=== PATIENT | female | born 1935 | race Caucasian/White ===

== ENCOUNTER 2019-11-26 07:42 | Outpatient (CLI) | payer MEDICARE, SELFPAY ==
[2019-11-26 08:09] LABS: Basophils Absolute Auto 0.02 K/mm3 (0.00-0.10); Basophils Percent Auto 0.3 % (0.0-1.0); Eosinophils Absolute Auto 0.16 K/mm3 (0.02-0.50); Eosinophils Percent Auto 2.6 % (1.0-6.0); Hematocrit 43.4 % (35.0-42.0); Hemoglobin 14.1 g/dL (11.7-13.8); Immature Granulocyte Absolute 0.03 K/mm3 (0.00-0.00); Immature Granulocyte Percent A 0.5 % (0.0-0.0); Lymphocytes Absolute Auto 1.43 K/mm3 (1.10-4.50); Lymphocytes Percent Auto 22.8 % (18.0-42.0); Mean Corpuscular HGB Conc 32.5 g/dL (32.0-36.0); Mean Corpuscular Hemoglobin 28.7 pg (27.0-31.0); Mean Corpuscular Volume 88.2 fL (78.0-102.0); Mean Platelet Volume 9.8 fl (9.2-11.8); Monocytes Absolute Auto 0.35 K/mm3 (0.10-0.90); Monocytes Percent Auto 5.6 % (2.0-11.0); Neutrophils Absolute Auto 4.3 K/mm3 (1.7-7.2); Neutrophils Percent Auto 68.2 % (50.0-70.0); Platelet Count Result 216 K/mm3 (150-420); Red Blood Count 4.92 M/mm3 (4.20-5.40); Red Cell Distribution Width 13.7 % (11.6-14.4); White Blood Count 6.3 K/mm3 (4.8-10.8)
[2019-11-26 08:49] LABS: Hemoglobin A1C 6.2 % (<5.7)
[2019-11-26 10:03] LABS: Alanine Aminotransferase 32 U/L (14-59); Albumin Level 3.9 g/dL (3.4-5.0); Alkaline Phosphatase 94 U/L (46-116); Anion Gap 12.5 mmol/L (7-16); Aspartate Amino Transferase 23 U/L (15-37); Bilirubin,Total 0.9 mg/dL (0.00-1.00); Blood Urea Nitrogen 13 mg/dL (7-18); Calcium 9.7 mg/dL (8.5-10.1); Carbon Dioxide 29 mmol/L (21-32); Chloride 102 mmol/L (98-108); Cholesterol 203 mg/dL (0-200); Estimated Glomerular Filt Rate 60; Glucose 117 mg/dL (70-99); HDL Direct 59 mg/dL (40-60); LDL Cholesterol Calculated 116 mg/dL (<130); Osmolality Calculated 289 mOsm/kg (285-295); Potassium 4.5 mmol/L (3.5-5.1); Sodium 139 mmol/L (136-145); Total Protein 7.4 g/dL (6.4-8.2); Triglycerides 141 mg/dL (0-150)
== END 2019-11-26 07:43 | disposition home or self-care (01) ==
PROVIDERS: PCP Nurse Practitioner Family; Visit Provider Nurse Practitioner Family
DX: E78.5 Hyperlipidemia, unspecified (principal); E11.69 Type 2 diabetes mellitus with other specified complication; E11.59 Type 2 diabetes mellitus with other circulatory complications; I10 Essential (primary) hypertension
CPT/HCPCS: 36415; 80053; 80061; 83036; 85025

== ENCOUNTER 2020-05-25 08:25 | Outpatient (CLI) | payer MEDICARE, SELFPAY ==
[2020-05-25 08:45] LABS: Hemoglobin A1C 5.4 % (<5.7)
== END 2020-05-25 08:26 | disposition home or self-care (01) ==
LOC: CHSLAB 08:27
PROVIDERS: PCP Nurse Practitioner Family; Visit Provider Nurse Practitioner Family
DX: E11.9 Type 2 diabetes mellitus without complications (principal)
CPT/HCPCS: 36415; 83036

== ENCOUNTER 2020-11-27 08:00 | Outpatient (CLI) | payer MEDICARE, SELFPAY ==
[2020-11-27 08:12] LABS: Basophils Absolute Auto 0.03 K/mm3 (0.00-0.10); Basophils Percent Auto 0.4 % (0.0-1.0); Eosinophils Absolute Auto 0.16 K/mm3 (0.02-0.50); Eosinophils Percent Auto 2.1 % (1.0-6.0); Hematocrit 44.1 % (35.0-42.0); Hemoglobin 13.8 g/dL (11.7-13.8); Immature Granulocyte Absolute 0.03 K/mm3 (0.00-0.00); Immature Granulocyte Percent A 0.4 % (0.0-0.0); Lymphocytes Absolute Auto 1.46 K/mm3 (1.10-4.50); Lymphocytes Percent Auto 19.1 % (18.0-42.0); Mean Corpuscular HGB Conc 31.3 g/dL (32.0-36.0); Mean Corpuscular Volume 89.5 fL (78.0-102.0); Mean Platelet Volume 9.4 fl (9.2-11.8); Monocytes Absolute Auto 0.48 K/mm3 (0.10-0.90); Monocytes Percent Auto 6.3 % (2.0-11.0); Neutrophils Absolute Auto 5.5 K/mm3 (1.7-7.2); Neutrophils Percent Auto 71.7 % (50.0-70.0); Platelet Count Result 223 K/mm3 (150-420); Red Blood Count 4.93 M/mm3 (4.20-5.40); Red Cell Distribution Width 14.3 % (11.6-14.4); White Blood Count 7.7 K/mm3 (4.8-10.8)
[2020-11-27 08:27] LABS: Hemoglobin A1C 5.8 % (<5.7)
[2020-11-27 08:55] LABS: Alanine Aminotransferase 28 U/L (14-59); Alkaline Phosphatase 92 U/L (46-116); Anion Gap 11 mmol/L (8-16); Aspartate Amino Transferase 16 U/L (15-37); Bilirubin,Total 0.7 mg/dL (0.00-1.00); Blood Urea Nitrogen 15 mg/dL (7-18); Calcium 9.6 mg/dL (8.5-10.1); Carbon Dioxide 27 mmol/L (21-32); Chloride 104 mmol/L (98-108); Cholesterol 171 mg/dL (0-200); Estimated Glomerular Filt Rate > 60; Glucose 130 mg/dL (70-99); HDL Direct 60 mg/dL (40-60); LDL Cholesterol Calculated 92 mg/dL (<130); Osmolality Calculated 296 mOsm/kg (285-295); Potassium 4.3 mmol/L (3.5-5.1); Sodium 142 mmol/L (136-145); Total Protein 7.4 g/dL (6.4-8.2); Triglycerides 96 mg/dL (0-150)
== END 2020-11-27 08:01 | disposition home or self-care (01) ==
PROVIDERS: PCP Nurse Practitioner Family; Visit Provider Nurse Practitioner Family
DX: E11.59 Type 2 diabetes mellitus with other circulatory complications (principal); I10 Essential (primary) hypertension; E11.69 Type 2 diabetes mellitus with other specified complication; E78.5 Hyperlipidemia, unspecified
CPT/HCPCS: 36415; 80053; 80061; 83036; 85025

== ENCOUNTER 2022-05-31 10:17 | Outpatient (CLI) | payer MEDICARE, SELFPAY ==
[2022-05-31 10:44] LABS: Basophils Absolute Auto 0.02 K/mm3 (0.00-0.10); Basophils Percent Auto 0.2 % (0.0-1.0); Eosinophils Percent Auto 1.2 % (1.0-6.0); Hematocrit 41.5 % (35.0-42.0); Hemoglobin 13.6 g/dL (11.7-13.8); Immature Granulocyte Absolute 0.03 K/mm3 (0.00-0.00); Immature Granulocyte Percent A 0.4 % (0.0-0.0); Lymphocytes Absolute Auto 1.07 K/mm3 (1.10-4.50); Lymphocytes Percent Auto 12.7 % (18.0-42.0); Mean Corpuscular HGB Conc 32.8 g/dL (32.0-36.0); Mean Corpuscular Hemoglobin 28.8 pg (27.0-31.0); Mean Corpuscular Volume 87.9 fL (78.0-102.0); Mean Platelet Volume 9.8 fl (9.2-11.8); Monocytes Absolute Auto 0.48 K/mm3 (0.10-0.90); Monocytes Percent Auto 5.7 % (2.0-11.0); Neutrophils Absolute Auto 6.8 K/mm3 (1.7-7.2); Neutrophils Percent Auto 79.8 % (50.0-70.0); Platelet Count Result 235 K/mm3 (150-420); Red Blood Count 4.72 M/mm3 (4.20-5.40); White Blood Count 8.5 K/mm3 (4.8-10.8)
[2022-05-31 10:53] LABS: Hemoglobin A1C 5.8 % (<5.7)
[2022-05-31 11:12] LABS: Alanine Aminotransferase 21 U/L (14-59); Albumin Level 4.1 g/dL (3.4-5.0); Alkaline Phosphatase 89 U/L (46-116); Anion Gap 9 mmol/L (8-16); Aspartate Amino Transferase 17 U/L (15-37); Bilirubin,Total 1.2 mg/dL (0.00-1.00); Blood Urea Nitrogen 15 mg/dL (7-18); Calcium 9.4 mg/dL (8.5-10.1); Carbon Dioxide 30 mmol/L (21-32); Chloride 103 mmol/L (98-108); Cholesterol 163 mg/dL (0-200); Estimated Glomerular Filt Rate > 60; Glucose 124 mg/dL (70-99); HDL Direct 66 mg/dL (40-60); LDL Cholesterol Calculated 82 mg/dL (<130); Osmolality Calculated 295 mOsm/kg (285-295); Sodium 142 mmol/L (136-145); Total Protein 7.6 g/dL (6.4-8.2); Triglycerides 76 mg/dL (0-150)
== END 2022-05-31 10:18 | disposition home or self-care (01) ==
LOC: CHSLAB 10:20
PROVIDERS: PCP Nurse Practitioner Family; Visit Provider Nurse Practitioner Family
DX: E78.5 Hyperlipidemia, unspecified (principal); E11.69 Type 2 diabetes mellitus with other specified complication; I10 Essential (primary) hypertension; E11.59 Type 2 diabetes mellitus with other circulatory complications
CPT/HCPCS: 36415; 80053; 80061; 83036; 85025

== ENCOUNTER 2023-02-08 11:05 | Outpatient (CLI) | payer MEDICARE, SELFPAY ==
--- NOTE | 2023-02-08 11:12 | ECG_ITS ---
Measurements Intervals [place] Rate: 41 P: [place]: 0 QRS: 67 QRSD: 86 T: 58 QT: 434 QTc: 361 Interpretive Statements SINUS BRADYCARDIA OCCASIONAL ECTOPIC PREMATURE COMPLEXES NONSPECIFIC ST & T-WAVE ABNORMALITY ABNORMAL ECG NO PREVIOUS ECG AVAILABLE FOR COMPARISON Electronically Signed On 02-08-2023 15:49:18 CDT by Alcon Ortiz M.D.
[2023-02-08 12:36] LABS: Basophils Absolute Auto 0.02 K/mm3 (0.00-0.10); Basophils Percent Auto 0.3 % (0.0-1.0); Eosinophils Absolute Auto 0.16 K/mm3 (0.02-0.50); Eosinophils Percent Auto 2.1 % (1.0-6.0); Hematocrit 45.3 % (35.0-42.0); Hemoglobin 14.6 g/dL (11.7-13.8); Immature Granulocyte Absolute 0.02 K/mm3 (0.00-0.00); Immature Granulocyte Percent A 0.3 % (0.0-0.0); Lymphocytes Absolute Auto 1.36 K/mm3 (1.10-4.50); Lymphocytes Percent Auto 17.6 % (18.0-42.0); Mean Corpuscular HGB Conc 32.2 g/dL (32.0-36.0); Mean Corpuscular Hemoglobin 28.2 pg (27.0-31.0); Mean Corpuscular Volume 87.5 fL (78.0-102.0); Mean Platelet Volume 9.7 fl (9.2-11.8); Monocytes Absolute Auto 0.47 K/mm3 (0.10-0.90); Monocytes Percent Auto 6.1 % (2.0-11.0); Neutrophils Absolute Auto 5.7 K/mm3 (1.7-7.2); Neutrophils Percent Auto 73.6 % (50.0-70.0); Platelet Count Result 261 K/mm3 (150-420); Red Blood Count 5.18 M/mm3 (4.20-5.40); Red Cell Distribution Width 14.1 % (11.6-14.4); White Blood Count 7.7 K/mm3 (4.8-10.8)
[2023-02-08 12:38] LABS: Appearance Urine Clear (Clear); Bilirubin Urine Negative (Negative); Blood Urine 1+ (Negative); Color Urine Yellow (Yellow); Glucose Urine UA Negative (Negative); Ketones Urine Negative (Negative); Leukocyte Esterase Ur 1+ LEU/UL (Negative); Nitrate Urine Negative (Negative); Protein Urine Negative (Negative); Specific Grav Ur 1.025 (1.010-1.020); Urobilinogen Urine 0.2 mg/dL (0.2-1.0)
[2023-02-08 12:45] LABS: Add Urine Microscopic? YES; Bacteria Urine Trace /hpf; RBC Urine 0-2 /hpf (0-2); Squamous Epithelial Cell Urine Few /hpf (Few); WBC Urine 0-5 /hpf (0-3)
[2023-02-08 12:59] LABS: Alanine Aminotransferase 25 U/L (14-59); Albumin Level 4.2 g/dL (3.4-5.0); Alkaline Phosphatase 92 U/L (46-116); Anion Gap 9 mmol/L (8-16); Aspartate Amino Transferase 15 U/L (15-37); Bilirubin,Total 1.3 mg/dL (0.00-1.00); Blood Urea Nitrogen 21 mg/dL (7-18); Calcium 10.1 mg/dL (8.5-10.1); Carbon Dioxide 26 mmol/L (21-32); Chloride 100 mmol/L (98-108); Estimated Glomerular Filt Rate 50; Glucose 127 mg/dL (70-99); NT Pro B Type Natriuretic Pept 491 pg/mL (0-450); Osmolality Calculated 285 mOsm/kg (285-295); Potassium 4.3 mmol/L (3.5-5.1); Sodium 135 mmol/L (136-145); Total Protein 8.2 g/dL (6.4-8.2); Troponin I 8.9 ng/L (0.00-60.4)
[2023-02-08 13:18] LABS: Thyroid Stimulating Hormone Reflex 1.85 u/IU/mL (0.36-3.74)
== END 2023-02-08 11:06 | disposition home or self-care (01) ==
PROVIDERS: PCP Nurse Practitioner Family; Visit Provider Nurse Practitioner Family
DX: M54.9 Dorsalgia, unspecified (principal); R82.90 Unspecified abnormal findings in urine; R00.1 Bradycardia, unspecified; R94.31 Abnormal electrocardiogram [ECG] [EKG]; R06.09 Other forms of dyspnea
CPT/HCPCS: 36415; 80053; 81001; 83880; 84443; 84484; 85025; 87086; 93005

== ENCOUNTER 2023-02-10 08:48 | Outpatient (CLI) | payer MEDICARE, SELFPAY ==
--- NOTE | 2023-02-13 10:29 | WPDHOLTEREM ---
Holter/Event Monitor Holter/Event Monitor Date of procedure: 02/10/23 Holter/Event Procedure: 48 Hr Holter Monitor Indications: Arrhythmia Conclusion: 1. 48 hour holter monitor on 02/10/23. 2. Predominant rhythm is sinus rhythm. HR range 33-112 bpm; average HR 68 bpm. HR at 33 bpm was sinus bradycardia at 06:44. 3. There are 1,347 premature supraventricular complexes, 183 supraventricular couplets, 2 supraventricular triplets, 104 supraventricular bigeminy and 103 supraventricular trigeminy. No supraventricular tachycardia. 4. There are 84 premature ventricular complexes, 3 ventricular couplets. There are 2 episodes of ventricular tachycardia, fastest at 119 bpm and longest lasting 13 beats. 5. No sinoatrial or atrioventricular blocks. The longest pause is 2.2 seconds at 04:05. 6. No symptoms available for correlation.
== END 2023-02-10 08:49 | disposition home or self-care (01) ==
LOC: CHSCARD 08:49
PROVIDERS: PCP Nurse Practitioner Family; Visit Provider Nurse Practitioner Family
DX: I49.9 Cardiac arrhythmia, unspecified (principal)
CPT/HCPCS: 93225; 93226

== ENCOUNTER 2023-03-20 07:43 | Outpatient (CLI) | payer MEDICARE, SELFPAY ==
--- NOTE | 2023-03-20 07:50 | EST_ITS ---
Patient Info Name: Yasmeen Welch Age: 87 years : 1935 Gender: Female Ht: 59 in Wt: 154 lbs BSA: 1.73 m2 HR: 96 bpm BP: 159 / 79 mmHg Heart Rhythm: Sinus Rhythm Technical Quality: Good Exam Date: 03/20/2023 9:11 AM Exam Location: Echo Lab Patient Status: Outpatient Admit Date: 03/20/2023 Staff Ordering Physician: Frederic Nj DO Attending Provider: Frederic Nj DO Exam Type: CA stress gisela w NM Study Info A regadenoson stress test was performed. History/Risk Factors Hypertension: Yes Dyslipidemia: Yes Diabetes Mellitus: Type II Tobacco Use: Former Summary 1. 1. Abnormal lexiscan stress test for ischemic ST changes by ECG criteria. 2. 2. Baseline hypertension. 3. 3. Nuclear scan to follow and will be reported separately. Please correlate with it. Protocol: LEXISCAN Stress ECG Details Stage: REST Duration (min): 3 min : 49 sec HR (bpm): 68 SBP (mmHg): 159 DBP (mmHg): 79 Stage: REST Duration (min): 8 min : 46 sec HR (bpm): 63 SBP (mmHg): 159 DBP (mmHg): 79 Stage: STAGE 1 Duration (min): 0 min : 15 sec HR (bpm): 67 SBP (mmHg): 159 DBP (mmHg): 79 Stage: RECOVERY Duration (min): 0 min : 44 sec HR (bpm): 79 SBP (mmHg): 159 DBP (mmHg): 79 Stage: RECOVERY Duration (min): 1 min : 44 sec HR (bpm): 79 SBP (mmHg): 159 DBP (mmHg): 79 Stage: RECOVERY Duration (min): 2 min : 44 sec HR (bpm): 81 SBP (mmHg): 141 DBP (mmHg): 68 Stage: RECOVERY Duration (min): 3 min : 44 sec HR (bpm): 74 SBP (mmHg): 148 DBP (mmHg): 66 Stage: RECOVERY Duration (min): 4 min : 44 sec HR (bpm): 73 SBP (mmHg): 148 DBP (mmHg): 66 Stage: RECOVERY Duration (min): 5 min : 44 sec HR (bpm): 74 SBP (mmHg): 153 DBP (mmHg): 67 Stage: RECOVERY Duration (min): 6 min : 4 sec HR (bpm): 71 SBP (mmHg): 153 DBP (mmHg): 70 Rest HR: 63 bpm Peak HR: 88 bpm Rest Sys BP: 159 mmHg Peak Sys BP: 153 mmHg Max Pred HR: 134 bpm % Max Pred HR: 66 % Target HR: 114 bpm Max RPP: 13,464 bpm*mmHg BP Response: Normal blood pressure response Termination Reason: Completed Protocol Cardiac Symptoms: None Total Time: 0 min : 15 sec Rest Bailey BP: 79 mmHg Peak Bailey BP: 70 mmHg Total Dose: 0.4 mg Resting ECG Sinus rhythm with 1st degree AV block and non-specific ST and T wave abnormality. Stress ECG 1-[address] depression in inferior leads. Arrhythmias No arrhythmias were observed during the examination. Report Signatures
--- NOTE | 2023-03-20 13:54 | ECHO_ITS ---
Patient Info Name: Yasmeen Welch Age: 87 years : 1935 Gender: Female Ht: 59 in Wt: 154 lbs BSA: 1.73 m2 HR: 65 bpm BP: 155 / 105 mmHg Heart Rhythm: Sinus Rhythm Technical Quality: Good Exam Date: 03/20/2023 2:50 PM Exam Location: Echo Lab Patient Status: Outpatient Admit Date: 03/20/2023 Staff Ordering Physician: Frederic Nj DO Technical Sales Support Specialist: Constantin Ortega RDCS Attending Provider: Frederic Nj DO Referring Physician: Clem ALVAREZ; Exam Type: CA echo doppler color flow Study Info Indications - dyspnea, ventricular tacchycardia Complete two-dimensional, color flow and Doppler transthoracic echocardiogram is performed. History/Risk Factors Hypertension: Yes Dyslipidemia: Yes Diabetes Mellitus: Type II Tobacco Use: Former Summary 1. Complete two-dimensional, color flow and Doppler transthoracic echocardiogram is performed. 2. Left ventricular chamber dimension is normal. 3. Left ventricular systolic function is normal, estimated at 60-65%. 4. There is mild concentric increased left ventricular wall thickness. 5. The left ventricular diastolic function is grade I diastolic dysfunction. 6. E/e' 6 is not elevated. 7. There is moderate aortic valve sclerosis. 8. There is mild aortic valve stenosis with a peak velocity of 139 cm/s, mean gradient of 5 mmHg, and aortic valve area of 1.6 cm2. 9. There is trace tricuspid valve regurgitation. 10. No pulmonary hypertension, estimated pulmonary arterial systolic pressure is 12 mmHg. 11. There is trace pulmonic regurgitation. Recommendations * Continue medical therapy for diabetes. Left Ventricle E/e' 6 is not elevated. Left ventricular chamber dimension is normal. Left ventricular systolic function is normal, estimated at 60-65%. There is mild concentric increased left ventricular wall thickness. The left ventricular diastolic function is grade I diastolic dysfunction. Right Ventricle Right ventricular systolic function is normal and with normal TAPSE 2.4 cm. Right ventricular chamber dimension is normal. Left Atria Left atrial chamber dimension is normal. Right Atria Right atrial chamber dimension is normal. Aortic Valve The aortic valve is trileaflet. There is moderate aortic valve sclerosis. There is mild aortic valve stenosis with a peak velocity of 139 cm/s, mean gradient of 5 mmHg, and aortic valve area of 1.6 cm2. There is no aortic valve regurgitation. Pulmonic Valve There is trace pulmonic regurgitation. Mitral Valve There is no mitral valve stenosis. There is no mitral valve regurgitation. Tricuspid Valve There is trace tricuspid valve regurgitation. No pulmonary hypertension, estimated pulmonary arterial systolic pressure is 12 mmHg. Pericardium/Pleural There is no pericardial effusion. Inferior Vena Cava Normal inferior vena cava with >50% collapse upon inspiration consistent with normal right atrial pressure, 5 mmHg. Aorta The aortic root size at the sinus of Valsalva is normal. Left Ventricular Outflow Tract Name Value Normal LVOT 2D LVOT Diameter 1.6 cm LVOT Doppler LVOT Peak Velocity 103 cm/s LVOT Peak Gradient 4 mmHg LVOT Me
--- NOTE | 2023-03-20 16:36 | WPDCARIOSTRE ---
Nuclear Stress Test INDICATIONS Indications: Ventricular tachycardia PROCEDURE Procedure Performed: Myocardial Perf Spect-Multi Procedure: Patient underwent a lexiscan stress test and immediately was injected with 30.0 mCi of cardiolyte. Multiple tomographic images were obtained. These are of good quality. There is no perfusion defect with stress imaging. A separate resting images were obtained after patient was injected with 10.0 mCi of cardiolyte. Multiple tomographic images were obtained. These are of good quality. There is no perfusion defect with rest imaging. CONCLUSION Conclusion: 1. Normal myocardial perfusion imaging demonstrating no perfusion defect with stress or rest imaging. 2. No evidence of reversible ischemia. 3. Left ventriculogram demonstrates normal measured ejection fraction that is hyperdynamic at 82% with no wall motion abnormalities. 4. TID score 0.97 is normal.
== END 2023-03-20 07:44 | disposition home or self-care (01) ==
LOC: CHSIMG 07:45
PROVIDERS: PCP Nurse Practitioner Family; Visit Provider Internal Medicine Cardiovascular Disease
DX: I47.29 Other ventricular tachycardia (principal); I35.0 Nonrheumatic aortic (valve) stenosis
CPT/HCPCS: 78452; 93017; 93306; A9502; J2785

== ENCOUNTER 2023-03-27 09:14 | Outpatient (CLI) | payer MEDICARE, SELFPAY ==
--- NOTE | 2023-03-27 09:21 | ECG_ITS ---
Measurements Intervals [place] Rate: 60 P: 22 MD: 233 QRS: 34 QRSD: 93 T: 67 QT: 425 QTc: 426 Interpretive Statements SINUS RHYTHM WITH SINUS ARRHYTHMIA WITH FIRST DEGREE AV BLOCK DELAYED PRECORDIAL R/S TRANSITION BORDERLINE ECG COMPARED TO ECG 02/08/2023 11:29:46 SINUS RHYTHM NOW PRESENT SINUS ARRHYTHMIA NOW PRESENT FIRST DEGREE AV BLOCK NOW PRESENT Electronically Signed On 03-27-2023 9:43:02 [employer] TRUCK [employer]IVER by Frederic Nj D.O.
== END 2023-03-27 09:15 | disposition home or self-care (01) ==
LOC: CHSCARD 09:17
PROVIDERS: PCP Nurse Practitioner Family; Visit Provider Internal Medicine Cardiovascular Disease
DX: I47.29 Other ventricular tachycardia (principal); I44.0 Atrioventricular block, first degree; I49.8 Other specified cardiac arrhythmias
CPT/HCPCS: 93005

== ENCOUNTER 2023-10-03 07:56 | Outpatient (CLI) | payer MEDICARE, SELFPAY ==
[2023-10-03 08:08] LABS: Basophils Absolute Auto 0.02 K/mm3 (0.00-0.10); Basophils Percent Auto 0.4 % (0.0-1.0); Eosinophils Absolute Auto 0.11 K/mm3 (0.02-0.50); Eosinophils Percent Auto 1.9 % (1.0-6.0); Hematocrit 43.9 % (35.0-42.0); Hemoglobin 13.8 g/dL (11.7-13.8); Immature Granulocyte Absolute 0.02 K/mm3 (0.00-0.00); Immature Granulocyte Percent A 0.4 % (0.0-0.0); Lymphocytes Absolute Auto 1.34 K/mm3 (1.10-4.50); Lymphocytes Percent Auto 23.7 % (18.0-42.0); Mean Corpuscular HGB Conc 31.4 g/dL (32-36); Mean Corpuscular Hemoglobin 27.2 pg (27.0-31.0); Mean Corpuscular Volume 86.6 fL (78.0-102.0); Mean Platelet Volume 9.9 fl (9.2-11.8); Monocytes Absolute Auto 0.41 K/mm3 (0.10-0.90); Monocytes Percent Auto 7.3 % (2.0-11.0); Neutrophils Absolute Auto 3.75 K/mm3 (1.70-7.20); Neutrophils Percent Auto 66.3 % (50.0-70.0); Platelet Count Result 197 K/mm3 (150-420); Red Blood Count 5.07 M/mm3 (4.20-5.40); Red Cell Distribution Width 15.4 % (11.6-14.4); White Blood Count 5.7 K/mm3 (4.8-10.8)
[2023-10-03 08:22] LABS: Hemoglobin A1C 5.8 % (<5.7)
[2023-10-03 08:43] LABS: Alanine Aminotransferase 35 U/L (14-59); Albumin Level 3.8 g/dL (3.4-5.0); Alkaline Phosphatase 81 U/L (46-116); Anion Gap 8 mmol/L (4-12); Aspartate Amino Transferase 26 U/L (15-37); Blood Urea Nitrogen 19 mg/dL (7-18); Calcium 9.3 mg/dL (8.5-10.1); Carbon Dioxide 30 mmol/L (21-32); Chloride 102 mmol/L (98-108); Cholesterol 166 mg/dL (0-200); Estimated Glomerular Filt Rate 42; Glucose 116 mg/dL (70-99); HDL Direct 79 mg/dL (40-60); LDL Cholesterol Calculated 74 mg/dL (<130); Osmolality Calculated 293 mOsm/kg (285-295); Sodium 140 mmol/L (136-145); Thyroid Stimulating Hormone 2.32 uIU/mL (0.36-3.74); Total Protein 7.3 g/dL (6.4-8.2); Triglycerides 63 mg/dL (0-150)
== END 2023-10-03 07:57 | disposition home or self-care (01) ==
LOC: CHSLAB 07:58
PROVIDERS: PCP Nurse Practitioner Family; Visit Provider Nurse Practitioner Family
DX: I10 Essential (primary) hypertension (principal); E11.59 Type 2 diabetes mellitus with other circulatory complications
CPT/HCPCS: 36415; 80053; 80061; 83036; 84443; 85025

== ENCOUNTER 2024-01-15 08:15 | Outpatient (CLI) | payer MEDICARE, SELFPAY ==
[2024-01-15 09:01] LABS: Alanine Aminotransferase 26 U/L (14-59); Albumin Level 3.8 g/dL (3.4-5.0); Alkaline Phosphatase 96 U/L (46-116); Anion Gap 8 mmol/L (4-12); Aspartate Amino Transferase 23 U/L (15-37); Bilirubin,Total 1.2 mg/dL (0.00-1.00); Blood Urea Nitrogen 24 mg/dL (7-18); Calcium 9.7 mg/dL (8.5-10.1); Carbon Dioxide 30 mmol/L (21-32); Chloride 100 mmol/L (98-108); Estimated Glomerular Filt Rate 40; Glucose 135 mg/dL (70-99); Osmolality Calculated 292 mOsm/kg (285-295); Potassium 3.8 mmol/L (3.5-5.1); Sodium 138 mmol/L (136-145); Total Protein 7.3 g/dL (6.4-8.2)
== END 2024-01-15 08:16 | disposition home or self-care (01) ==
LOC: CHSLAB 08:17
PROVIDERS: PCP Nurse Practitioner Family; Visit Provider Nurse Practitioner Family
DX: E11.9 Type 2 diabetes mellitus without complications (principal)
CPT/HCPCS: 36415; 80053

== ENCOUNTER 2024-04-08 14:49 | Outpatient (CLI) | payer MEDICARE, SELFPAY ==
--- NOTE | 2024-04-08 14:56 | ECG_ITS ---
Test Date: 2024-04-08 15:05:56 Measurements Intervals [place] Rate: 37 P: 0 FL: 0 QRS: 58 QRSD: 104 T: 86 QT: 502 QTc: 395 Interpretive Statements JUNCTIONAL ESCAPE RHYTHM SEPTAL MYOCARDIAL INFARCTION , OF INDETERMINATE AGE [40+ ms Q WAVE IN V1/V2] ST DEVIATION AND MODERATE T-WAVE ABNORMALITY, CONSIDER LATERAL ISCHEMIA [-0.1+ mV T-WAVE IN I/aVL/V5/V6] CRITICAL TEST RESULT No previous ECG available for comparison Electronically Signed On 04-08-2024 20:18:39 MANAGER OF PATIENT by Mak Santoro M.D.
== END 2024-04-08 14:50 | disposition home or self-care (01) ==
PROVIDERS: PCP Nurse Practitioner Family; Visit Provider Internal Medicine Cardiovascular Disease
DX: I47.29 Other ventricular tachycardia (principal); I21.9 Acute myocardial infarction, unspecified; R94.31 Abnormal electrocardiogram [ECG] [EKG]
CPT/HCPCS: 93005

== ENCOUNTER 2024-04-16 08:51 | Outpatient (CLI) | payer MEDICARE, SELFPAY ==
--- NOTE | 2024-04-16 08:58 | ECG_ITS ---
Test Date: 2024-04-16 09:08:52 Measurements Intervals [place] Rate: 50 P: 0 RI: 0 QRS: 37 QRSD: 101 T: 181 QT: 482 QTc: 443 Interpretive Statements ATRIAL FIBRILLATION WITH SLOW VENTRICULAR RESPONSE SEPTAL MYOCARDIAL INFARCTION , PROBABLY OLD [40+ ms Q WAVE IN V1/V2] MODERATE T-WAVE ABNORMALITY, CONSIDER LATERAL ISCHEMIA [-0.1+ mV T-WAVE IN I/aVL/V5/V6] Compared to ECG 04/08/2024 15:05:56 Junctional rhythm no longer present Myocardial infarct finding still present T-wave abnormality still present Possible ischemia still present Electronically Signed On 04-16-2024 16:00:48 DRY CELL SEALER by Jagdeep Palm M.D.
== END 2024-04-16 08:52 | disposition home or self-care (01) ==
PROVIDERS: PCP Nurse Practitioner Family; Visit Provider Internal Medicine Cardiovascular Disease
DX: I47.29 Other ventricular tachycardia (principal); I48.91 Unspecified atrial fibrillation
CPT/HCPCS: 93005

== ENCOUNTER 2024-04-17 08:29 | Outpatient (CLI) | payer MEDICARE, SELFPAY ==
[2024-04-17 08:38] LABS: Hematocrit 41.6 % (35.0-42.0); Hemoglobin 13.4 g/dL (11.7-13.8); Mean Corpuscular HGB Conc 32.2 g/dL (32-36); Mean Corpuscular Volume 86.8 fL (78.0-102.0); Mean Platelet Volume 9.9 fl (9.2-11.8); Platelet Count Result 194 K/mm3 (150-420); Red Blood Count 4.79 M/mm3 (4.20-5.40); Red Cell Distribution Width 14.8 % (11.6-14.4); White Blood Count 6.2 K/mm3 (4.8-10.8)
[2024-04-17 09:10] LABS: Hemoglobin A1C 5.6 % (<5.7)
[2024-04-17 09:21] LABS: Creatinine Urine 191.31 mg/dL (40-278)
[2024-04-17 09:26] LABS: MALB Creatinine Ratio 76.7 mg/g (0-30); Microalbumin Urine Random 146.9 mg/L
[2024-04-17 09:39] LABS: Alanine Aminotransferase 24 U/L (14-59); Albumin Level 3.8 g/dL (3.4-5.0); Alkaline Phosphatase 106 U/L (46-116); Anion Gap 10 mmol/L (4-12); Aspartate Amino Transferase 19 U/L (15-37); Bilirubin,Total 1.2 mg/dL (0.00-1.00); Blood Urea Nitrogen 24 mg/dL (7-18); Calcium 9.5 mg/dL (8.5-10.1); Carbon Dioxide 29 mmol/L (21-32); Chloride 103 mmol/L (98-108); Estimated Glomerular Filt Rate 52; Glucose 102 mg/dL (70-99); Osmolality Calculated 298 mOsm/kg (285-295); Potassium 3.9 mmol/L (3.5-5.1); Sodium 142 mmol/L (136-145); Total Protein 7.3 g/dL (6.4-8.2)
== END 2024-04-17 08:30 | disposition home or self-care (01) ==
LOC: CHSLAB 08:31
PROVIDERS: PCP Nurse Practitioner Family; Visit Provider Nurse Practitioner Family
DX: E11.22 Type 2 diabetes mellitus with diabetic chronic kidney disease (principal); N18.9 Chronic kidney disease, unspecified
CPT/HCPCS: 36415; 80053; 82043; 83036; 85027

== ENCOUNTER 2024-04-30 08:38 | Outpatient (CLI) | payer MEDICARE, SELFPAY ==
--- NOTE | 2024-04-30 08:43 | ECG_ITS ---
Test Date: 2024-04-30 08:52:53 Measurements Intervals [place] Rate: 58 P: 0 [place]: 0 QRS: 94 QRSD: 99 T: 256 QT: 422 QTc: 416 Interpretive Statements ATRIAL FIBRILLATION WITH SLOW VENTRICULAR RESPONSE BORDERLINE RIGHT AXIS DEVIATION [QRS AXIS > 90] SEPTAL MYOCARDIAL INFARCTION , PROBABLY OLD [40+ ms Q WAVE IN V1/V2] MODERATE T-WAVE ABNORMALITY, CONSIDER LATERAL ISCHEMIA [-0.1+ mV T-WAVE IN I/aVL/V5/V6] MODERATE T-WAVE ABNORMALITY, CONSIDER INFERIOR ISCHEMIA [-0.1+ mV T-WAVE IN II/aVF] Compared to ECG 04/16/2024 09:08:52 No significant changes Electronically Signed On 04-30-2024 22:49:47 WHITE SOURER by Maritza Simons M.D.
== END 2024-04-30 08:39 | disposition home or self-care (01) ==
PROVIDERS: PCP Nurse Practitioner Family; Visit Provider Internal Medicine Cardiovascular Disease
DX: I47.29 Other ventricular tachycardia (principal); I48.91 Unspecified atrial fibrillation; I21.29 ST elevation (STEMI) myocardial infarction involving other sites; R94.31 Abnormal electrocardiogram [ECG] [EKG]
CPT/HCPCS: 93005

== ENCOUNTER 2024-05-15 11:35 | Outpatient (CLI) | payer MEDICARE, SELFPAY ==
[2024-05-15 11:49] LABS: Basophils Absolute Auto 0.03 K/mm3 (0.00-0.10); Basophils Percent Auto 0.3 % (0.0-1.0); Eosinophils Absolute Auto 0.21 K/mm3 (0.02-0.50); Eosinophils Percent Auto 2.3 % (1.0-6.0); Hematocrit 37.5 % (35.0-42.0); Hemoglobin 11.7 g/dL (11.7-13.8); Immature Granulocyte Absolute 0.05 K/mm3 (0.00-0.00); Immature Granulocyte Percent A 0.5 % (0.0-0.0); Lymphocytes Absolute Auto 1.39 K/mm3 (1.10-4.50); Mean Corpuscular HGB Conc 31.2 g/dL (32-36); Mean Corpuscular Hemoglobin 27.6 pg (27.0-31.0); Mean Corpuscular Volume 88.4 fL (78.0-102.0); Mean Platelet Volume 9.1 fl (9.2-11.8); Monocytes Absolute Auto 0.43 K/mm3 (0.10-0.90); Monocytes Percent Auto 4.6 % (2.0-11.0); Neutrophils Absolute Auto 7.16 K/mm3 (1.70-7.20); Neutrophils Percent Auto 77.3 % (50.0-70.0); Platelet Count Result 418 K/mm3 (150-420); Red Blood Count 4.24 M/mm3 (4.20-5.40); Red Cell Distribution Width 15.9 % (11.6-14.4); White Blood Count 9.3 K/mm3 (4.8-10.8)
[2024-05-15 12:21] LABS: Creatinine Urine 113.68 mg/dL (40-278); MALB Creatinine Ratio 47.1 mg/g (0-30); Microalbumin Urine Random 53.6 mg/L
[2024-05-15 12:22] LABS: Alanine Aminotransferase 28 U/L (14-59); Alkaline Phosphatase 90 U/L (46-116); Anion Gap 10 mmol/L (4-12); Aspartate Amino Transferase 26 U/L (15-37); Bilirubin,Total 1.4 mg/dL (0.00-1.00); Blood Urea Nitrogen 18 mg/dL (7-18); Calcium 9.9 mg/dL (8.5-10.1); Carbon Dioxide 30 mmol/L (21-32); Chloride 98 mmol/L (98-108); Estimated Glomerular Filt Rate 50; Glucose 118 mg/dL (70-99); Osmolality Calculated 288 mOsm/kg (285-295); Potassium 3.4 mmol/L (3.5-5.1); Sodium 138 mmol/L (136-145); Total Protein 7.5 g/dL (6.4-8.2)
[2024-05-15 12:45] LABS: Hemoglobin A1C 5.4 % (<5.7)
== END 2024-05-15 11:36 | disposition home or self-care (01) ==
LOC: CHSLAB 11:36
PROVIDERS: PCP Family Medicine; Visit Provider Family Medicine
DX: E11.59 Type 2 diabetes mellitus with other circulatory complications (principal); I10 Essential (primary) hypertension
CPT/HCPCS: 36415; 80053; 82043; 83036; 85025

== ENCOUNTER 2024-06-11 13:29 | Inpatient (IN) | payer MEDICARE, SELFPAY ==
[2024-06-11] VITALS (12 sets, daily range): BP systolic 91–177; BP diastolic 40–88; PULSE 38–97; RESP 13–20; TEMP 36.3–36.6; O2SAT 62–100; BMI 27.2
--- NOTE | ~2024-06-11 | XR_ITS ---
EXAMINATION: XR chest 2V DATE: 06/14/2024 08:54 INDICATION: Pacer placement. TECHNIQUE: Frontal and lateral views of the chest were obtained. COMPARISON: Chest single view 06/13/2024, chest CT 06/11/2024 FINDINGS: There are calcified pleural plaques bilaterally, which may be seen with asbestos exposure. No pleural effusion or pneumothorax. The heart size is normal. There is a left chest wall pacer with leads in the right atrium and right ventricle. Surgical clips in the right upper quadrant are likely from cholecystectomy. IMPRESSION: 1. No acute cardiopulmonary disease. Reviewed, dictated and finalized at location A. AGE BABYSITTER
--- NOTE | ~2024-06-11 | XR_ITS ---
Portable chest x-ray Comparison: 06/11/2024 Clinical History: Pacemaker insertion Findings: Stable calcified bilateral pulmonary nodules. No acute pulmonary abnormality seen. No pneu mothorax. Cardiomediastinal silhouette is stable, status post interval pacemaker placement. Bones an d soft tissues are unremarkable. Impression: Status post interval pacemaker placement. No pneumothorax. Stable calcified pulmonary granulomas. Reviewed, dictated and finalized at [facility]. AZZO LAYER HELPER Impression: Status post interval pacemaker placement. No pneumothorax. Stable calcified pulmonary granulomas.
--- NOTE | ~2024-06-11 | XR_ITS ---
EXAMINATION: XR chest 1V portable DATE: 06/11/2024 14:16 INDICATION: Shortness of breath. TECHNIQUE: A single frontal view of the chest was obtained. COMPARISON: None. FINDINGS: There are lucencies in the lungs, consistent with emphysema. There is a nodule in left midl chelle zone. No pleural effusion or pneumothorax. The heart size is normal. IMPRESSION: 1. Nodule left midlung zone suspicious for primary bronchogenic carcinoma. Noncontrast chest CT is re commended. 2. Emphysema. Reviewed, dictated and finalized at location A. CONVEYOR OPERATOR IMPRESSION: 1. Nodule left midlung zone suspicious for primary bronchogenic carcinoma. Nonc ontrast chest CT is recommended. 2. Emphysema.
--- NOTE | ~2024-06-11 | CT_ITS ---
EXAMINATION: CTA chest PE protocol DATE: 06/11/2024 15:26 INDICATION: Pulmonary nodule. Shortness of breath. TECHNIQUE: Computed tomography angiography (CTA) of the chest was performed with 100 mL Omnipaque-350 intravenous contrast timed to evaluate the pulmonary arteries. Coronal maximum intensity projection 3D-reconstructions were created by the technologist. Automated exposure control and iterative reconst ruction technique were employed. The dose-length product was 291.06 mGy-cm. COMPARISON: Chest single view 06/11/2024 FINDINGS: There is mild scarring at the lung apices. There are calcified pleural plaques bilaterally, which may be seen with asbestos exposure. There is peripheral septal thickening in the lungs with a lower lung predominance. No bronchiectasis or honeycombing. No pleural effusion. The heart size is no rmal. No pericardial effusion. There is a 6 mm nodule in left thyroid lobe, likely not clinically sig nificant. There is no pulmonary embolus. There are changes of cholecystectomy. There is severe cervic al, thoracic, and lumbar spondylosis. IMPRESSION: 1. No pulmonary embolus. 2. Calcified pleural plaque correlating with the chest radiograph abnormality. 3. Mild chronic interstitial lung disease (asbestosis). Reviewed, dictated and finalized at location A. R SUPPLY ENGINEER
--- NOTE | 2024-06-11 14:06 | ED_ITS ---
HPI - Recheck/Abnormal Lab/Rx General Chief Complaint: Recheck/Abnormal Lab/Rx Stated Complaint: HR 42 BP 90/44 AT MD OFFICE Time Seen by Provider: 06/11/24 13:44 History of Present Illness HPI narrative: Patient found to be hypotensive and bradycardic at her doctor's office, the whole morning she had been having shortness of breath and feeling like she was going to pass out mostly while she was standing, her doctor told her to going to his office at which point she was found to have low heart rate and blood pressure and he told her to go to the emergency room. At some point she did have to put her head down by her niece, because she felt like she was going to pass out. She is currently denying any complaints or symptoms. Has been told in the past that she was found to be bradycardic. Related Data Allergies Allergy/AdvReac Type Severity Reaction Status Date / Time azithromycin (Zithromax Allergy Intermediate rash Verified 05/15/24 08:22 Z-Shahab) Penicillins Allergy Intermediate rash Verified 05/15/24 08:22 Review of Systems 2 Review of Systems: All systems reviewed & are unremarkable except as noted in HPI and below PMFSH Past Medical History Medical History Need for vaccination with 13-polyvalent pneumococcal conjugate vaccine Hypertension associated with diabetes Hyperlipidemia associated with type 2 diabetes mellitus Type 2 diabetes mellitus Surgical History Surgical History H/O cataract extraction left eye H/O cataract extraction right eye H/O bilateral oophorectomy Hx of hysterectomy Hx of cholecystectomy Family History Family History Mother , Age 81 CHF (congestive heart failure) Social History Social History Smoking packs per day: 0.5 Smoking cigarettes per day: 10.0 Years smoked: 10 Smoking pack-years: 5.00 Smoking status: Former smoker Tobacco type: cigarettes Alcohol intake: current Drinks per week: 1 Alcohol use details: social Substance use: never Substance use type: does not use Do You Feel Safe in your Home?: Yes Lack of Transportation: No Lack of Food: Never True Current Housing: I Have Housing Concerned About Future Housing: No Difficulty Paying Gas/Electric Bills: No Difficulty Paying for Meds: No Currently Unemployed: No Education: High School Diploma/GED Difficulty w/ Childcare or Family Care: No Living arrangements: with family Additional living arrangements comments: , has 4 children Occupation/Education: retired 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 EYES: EOMI, conjunctiva normal ENT: Hearing grossly intact LUNGS: Nonlabored breathing. HEART: [Regular rate and rhythm] ABD: [Soft], [nontender to palpation] EXT: Normal range of motion SKIN: [No rashes or lesions.] NEURO: [Alert and oriented x 3. No gross focal sensory or strength deficits.] PSYCH: Normal affect Course Vital Signs Vital signs: Vital Signs Pulse Rate 65 06/11/24 13:39 Respiratory Rate 13 06/11/24 13:39 Blood Pressure 117/70 06/11/24 13:39 Pulse Oximetry 100 06/11/24 13:39 Oxygen Delivery Room Air 06/11/24 13:39 Pulse Rate 64 06/11/24 16:00 Respiratory Rate 16 06/11/24 16:00 Blood Pressure 140/61 06/11/24 16:00 Pulse Oximetry 100 06/11/24 16:00 Oxygen Delivery Room Air 06/11/24 13:39 MDM - Recheck/Abnormal Lab/Rx MDM Narrative Medical decision making narrative: Patient presents here after she had episode of presyncope where she has had a bradycardic and slightly hypertensive at her doctor's office. She is currently completely asymptomatic. In normal sinus rhythm here, EKG here shows normal sinus rhythm with first-degree AV block, no obvious ST elevations or depressions on my independent interpretation. On labs she does have a slightly elevated troponin, however she is asymptomatic at this time, I discussed this with her grades 1 6 tutor who agrees that she likely does not require any further emergent intervention at this time, recommends Holter monitor with close follow-up in clinic. With patient that her chest x-ray does show possible lung mass, I did obtain a CT chest which does not show any blood clot and thankfully no obvious lung mass. Discussed this with the patient unfortunately she has now gone into bradycardia with heart rate in the 30s. Discussed with hospitalist for admission. Discussed with her grades 1 6 tutor. Lab Data 06/11/24 13:53 06/11/24 13:53 Labs: Lab Results 06/11/24 06/11/24 Range/Units 13:53 16:26 WBC 8.1 (4.5-10.0) K/mm3 RBC 4.68 (4.2-5.4) M/mm3 Hgb 13.2 (12.0-15.0) g/dL Hct 41.8 (37.0-47.0) % MCV 89.3 (80-100) fl MCH 28.2 (26-34) pg MCHC 31.6 L (32-36) g/dl RDW 15.4 H (11.5-14.5) % Plt Count 272 (150-375) k/mm3 MPV 10.3 (7.4-10.4) fl Immature Gran % (Auto) 0.4 (0-0.5) % Neut % (Auto) 81.6 H (45.5-73.1) % Lymph % (Auto) 11.2 L (18.3-44.2) % [place] % (Auto) 6.3 (2.6-8.5) % Eos % (Auto) 0.4 (0-4.4) % Baso % (Auto) 0.1 L (0.2-1.2) % Lymph # (Auto) 0.90 (0.9-3.2) K/mm3 [place] # (Auto) 0.5 (0.1-0.6) K/mm3 Eos # (Auto) 0.0 (0-0.3) K/mm3 Baso # (Auto) 0.0 (0.0-0.1) K/mm3 Abs Immat Gran (auto) 0.03 (0.00-0.031) K/mm3 Absolute Neuts (auto) 6.6 (1.3-6.7) K/mm3 Absolute Nucleated RBC 0.000 (0.0-0.012) K/mm3 Nucleated RBC % 0.0 (0.0-0.2) % Sodium 141 (137-145) mmol/L Potassium 3.7 (3.4-5.0) mmol/L Chloride 100 (98-107) mmol/L Carbon Dioxide 24 (22-30) mmol/L Anion Gap 17 H (4-12) mmol/L BUN 32 H (7-17) mg/dL Creatinine 1.47 H (0.7-1.0) mg/dL Estim Creat Clear Calc Not Reportable Estimated GFR 34 L (59 - ) Glucose 112 H (65-110) mg/dL Calcium 10.5 H (8.4-10.2) mg/dL Total Bilirubin 1.6 H (0.2-1.3) mg/dL AST 28 (14-36) U/L ALT 21 (6-35) U/L Alkaline Phosphatase 87 (38-126) U/L Troponin I 0.043 H* Pending (0.000-0.034) ng/mL Total Protein 8.0 (6.3-8.2) g/dL Albumin 4.5 (3.5-5.1) g/dL Discharge Plan Discharge Clinical Impression: Bradycardia, Elevated troponin Patient Disposition: Still a Patient Condition: Stable Patient Language: Barbadian Prescriptions: No Action hydrochlorothiazide 12.5 mg capsule See Rx Instructions .ROUTE .COMPLEX Qty: 90 3RF Dose Instruction: TAKE 1 CAPSULE DAILY, PREFERABLY IN THE MORNING Rx Instructions: TAKE 1 CAPSULE DAILY, PREFERABLY IN THE MORNING aspirin 81 mg tablet,delayed release (DR/EC) See Rx Instructions .ROUTE .COMPLEX Qty: 90 3RF Dose Instruction: TAKE 1 TABLET DAILY Rx Instructions: TAKE 1 TABLET DAILY atorvastatin 10 mg tablet See Rx Instructions .ROUTE .COMPLEX Qty: 90 3RF Dose Instruction: TAKE 1 TABLET DAILY (NEED FOLLOW UP APPOINTMENT) Rx Instructions: TAKE 1 TABLET DAILY (NEED FOLLOW UP APPOINTMENT) Jardiance 10 mg tablet 10 mg PO DAILY Qty: 90 2RF Follow-up/Referrals: Cuco Solis, [Primary Care Provider] -
[2024-06-11 14:09] LABS: Basophils Percent Auto 0.1 % (0.2-1.2); Eosinophils Percent Auto 0.4 % (0-4.4); Hematocrit 41.8 % (37.0-47.0); Hemoglobin 13.2 g/dL (12.0-15.0); Immature Granulocyte Absolute 0.03 K/mm3 (0.00-0.031); Immature Granulocyte Percent A 0.4 % (0-0.5); Lymphocytes Percent Auto 11.2 % (18.3-44.2); Mean Corpuscular HGB Conc 31.6 g/dl (32-36); Mean Corpuscular Hemoglobin 28.2 pg (26-34); Mean Corpuscular Volume 89.3 fl (80-100); Mean Platelet Volume 10.3 fl (7.4-10.4); Monocytes Absolute Auto 0.5 K/mm3 (0.1-0.6); Monocytes Percent Auto 6.3 % (2.6-8.5); Neutrophils Absolute Auto 6.6 K/mm3 (1.3-6.7); Neutrophils Percent Auto 81.6 % (45.5-73.1); Platelet Count Result 272 k/mm3 (150-375); Red Blood Count 4.68 M/mm3 (4.2-5.4); Red Cell Distribution Width 15.4 % (11.5-14.5); White Blood Count 8.1 K/mm3 (4.5-10.0)
--- OUTSIDE RECORDS SUMMARY | 2024-06-11 14:15 | XMS_ITS | Clinical Summary ---
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 facet osteoarthritis with the same degree of neural foraminal stenosis at these levels. Procedure Note Barb Zaldivar MD - 05/02/2024 PROCEDURE: CT LUMBAR SPINE WO CONTRAST PROCEDURE: CT THORACIC SPINE WO CONTRAST, DATE/TIME OF EXAM: 05/02/2024 10:33 AM, LOCATION [facility] INDICATION: Trauma ADDITIONAL CLINICAL INFORMATION: Ordering Provider Reason For Exam: Technologist Note: Additional: EXAMINATION: 1. Computed tomography (CT) of the thoracic spine without contrast 2. CT of the lumbar spine without contrast TECHNIQUE: Reformatted axial, sagittal, and coronal images of thethoracic and lumbar spine were obtained by the technologist from a concurrently performed body CT and sent to the workstation for review. COMPARISON: No prior study is available for comparison at the time ofthis dictation. FINDINGS: Thoracic spine: No soft tissue abnormality is identified. Mild levocurvature. The bones are mildly osteopenic. Vertebral bodiesare normal in height without evidence of acute fracture. There is up to moderate multilevel degenerative disc disease. The central canal ispatent. There are varying degrees of mild facet osteoarthritis. No neuralforaminal stenosis is seen. Lumbar spine: There is atherosclerotic calcification of the abdominal aorta and its branch vessels. Mild dextroscoliosis. The bones are moderately osteopenic. There is anage indeterminant compression fracture of the superior endplate of T1 withloss of approximately 25% height. There is up to severe multileveldegenerative disc disease. The central canal is moderately stenotic at multiplelevels. There are varying degrees of up to severe facet osteoarthritis with the same degree of neural foraminal stenosis at these levels. IMPRESSION: 1. An age indeterminant compression fracture of the superior endplate ofT1 with loss of approximately 25% height. If clinically indicated, athoracic spine MRI may be considered to further evaluate to determine the acuityof this fracture. 2. No evidence of acute fracture in the lumbar spine. > Interpreting Provider: Barb Zaldivar MD on 05/02/2024 11:09 AM Jean Contreras MD CT ORDERABLES * CT THORACIC SPINE WO CONTRAST - T/L-spine trauma, spine fracture (05/02/2024 10:31 AM [facility]) Anatomical Region Laterality Modality Spine Computed Tomogra phy 05/02/2024 10:4 9 AM [facility] Impressions 05/02/2024 11:02 AM [facility] IMPRESSION: 1. An age indeterminant compression fracture of the superior endplate of T1 with loss of approximately 25% height. If clinically indicated, a thoracic spine MRI may be considered to further evaluate to determine the acuity of this fracture. 2. No evidence of acute fracture in the lumbar spine. > Interpreting Provider: Barb Zaldivar MD on 05/02/2024 11:02 AM Narrative 05/02/2024 11:02 AM [facility] PROCEDURE: CT THORACIC SPINE WO CONTRAST, DATE/TIME OF EXAM: 05/02/2024 10:33 AM, LOCATION [facility] INDICATION: Trauma ADDITIONAL CLINICAL INFORMATION: Ordering Provider Reason For Exam: Technologist Note: Additional: EXAMINATION: 1. Computed tomography (CT) of the thoracic spine without contrast 2. CT of the lumbar spine without contrast TECHNIQUE: Reformatted axial, sagittal, and coronal images of the thoracic and lumbar spine were obtained by the technologist from a concurrently performed body CT and sent to the workstation for review. COMPARISON: No prior study is available for comparison at the time of this dictation. FINDINGS: Thoracic spine: No soft tissue abnormality is identified. Mild levocurvature. The bones are mildly osteopenic. Vertebral bodies are normal in height without evidence of acute fracture. There is up to moderate multilevel degenerative disc disease. The central canal is patent. There are varying degrees of mild facet osteoarthritis. No neural foraminal stenosis is seen. Lumbar spine: There is atherosclerotic calcification of the abdominal aorta and its branch vessels. Mild dextroscoliosis. The bones are moderately osteopenic. There is an age indeterminant compression fracture of the superior endplate of T1 with loss of approximately 25% height. There is up to severe multilevel degenerative disc disease. The central canal is moderately stenotic at multiple levels. There are varying degrees of up to severe facet osteoarthritis with the same degree of neural foraminal stenosis at these levels. Procedure Note Barb Zaldivar MD - 05/02/2024 PROCEDURE: CT THORACIC SPINE WO CONTRAST, DATE/TIME OF EXAM: 05/02/2024 10:33 AM, LOCATION [facility] INDICATION: Trauma ADDITIONAL CLINICAL INFORMATION: Ordering Provider Reason For Exam: Technologist Note: Additional: EXAMINATION: 1. Computed tomography (CT) of the thoracic spine without contrast 2. CT of the lumbar spine without contrast TECHNIQUE: Reformatted axial, sagittal, and coronal images of thethoracic and lumbar spine were obtained by the technologist from a concurrently performed body CT and sent to the workstation for review. COMPARISON: No prior study is available for comparison at the time ofthis dictation. FINDINGS: Thoracic spine: No soft tissue abnormality is identified. Mild levocurvature. The bones are mildly osteopenic. Vertebral bodiesare normal in height without evidence of acute fracture. There is up to moderate multilevel degenerative disc disease. The central canal ispatent. There are varying degrees of mild facet osteoarthritis. No neuralforaminal stenosis is seen. Lumbar spine: There is atherosclerotic calcification of the abdominal aorta and its branch vessels. Mild dextroscoliosis. The bones are moderately osteopenic. There is anage indeterminant compression fracture of the superior endplate of T1 withloss of approximately 25% height. There is up to severe multileveldegenerative disc disease. The central canal is moderately stenotic at multiplelevels. There are varying degrees of up to severe facet osteoarthritis with the same degree of neural foraminal stenosis at these levels. IMPRESSION: 1. An age indeterminant compression fracture of the superior endplate ofT1 with loss of approximately 25% height. If clinically indicated, athoracic spine MRI may be considered to further evaluate to determine the acuityof this fracture. 2. No evidence of acute fracture in the lumbar spine. > Interpreting Provider: Barb Zaldivar MD on 05/02/2024 11:02 AM Jean Contreras MD CT ORDERABLES * CT CERVICAL SPINE WO CONTRAST - C-Spine Trauma, Spine fracture (05/02/2024 10:31 AM [facility]) Anatomical Region Laterality Modality Spine Computed Tomogra phy 05/02/2024 9:53 AM [facility] Impressions 05/02/2024 10:25 AM [facility] IMPRESSION: 1. An acute subdural hematoma along the right cerebral convexity, measuring up to 7 mm in maximum thickness with regional mass effect without significant midline shift. Scattered subarachnoid hemorrhage in the bilateral frontal cerebral sulci and the right sylvian fissure. 2. An acute comminuted fracture of the right frontal bone with 4 mm of depression adjacent to a large right frontal scalp laceration. 3. No evidence of acute fracture in the cervical spine. 4. An age indeterminant, probably acute superior endplate compression fracture of the T1 vertebral body with loss of less than 25% height. Please refer to the report of a concurrent CT of the thoracic spine for further details. These findings were discussed in detail with the patient's care provider, Dr. Cummins by Dr. Zaldivar via telephone at 10:25 AM on 05/02/2024 with readback comprehension and verification. > Interpreting Provider: Barb Zaldivar MD on 05/02/2024 10:25 AM Narrative 05/02/2024 10:25 AM [facility] PROCEDURE: CT HEAD WO CONTRAST, CT CERVICAL SPINE WO CONTRAST, CT FACIAL BONES WO CONTRAST, DATE/TIME OF EXAM: 05/02/2024 9:12 AM, LOCATION [facility] INDICATION: Trauma ADDITIONAL CLINICAL INFORMATION: Ordering Provider Reason For Exam: Technologist Note: Additional: EXAMINATION: 1. Computed tomography (CT) of the head without contrast 2. CT of the maxillofacial bones, orbits, and paranasal sinuses without contrast 3. CT of the cervical spine without contrast TECHNIQUE: CT of the head, cervical spine, and maxillofacial bones, orbits, and paranasal sinuses was performed without contrast according to standard protocol. COMPARISON: No prior study is available for comparison at the time of this dictation. FINDINGS: Head: An acute subdural hematoma along the right cerebral convexity, measuring up to 7 mm in maximum thickness with regional mass effect without significant midline shift. Scattered subarachnoid hemorrhage in the bilateral frontal cerebral sulci and the right sylvian fissure. The ventricles are of normal size, shape, and morphology. The basal cisterns are patent. The oseguera-white matter differentiation is normal. Periventricular white matter hypoattenuation is a nonspecific finding that may be indicative of chronic small vessel ischemic disease. There is atherosclerotic calcification of the carotid siphons. No acute calvarial fracture is identified. There is a large right frontal scalp laceration. There is an acute comminuted fracture of the right frontal bone adjacent to the scalp laceration with a 4 mm depression. Maxillofacial: The streaky and beam hardening artifacts from the dental restorations obscure a large portion of the oral cavity and the adjacent structures. Severe right facial soft tissue swelling. The orbits including the globes, optic nerves, retrobulbar fat and extraocular muscles appear normal. There is mild paranasal sinus disease. Other than osteoarthritis of the temporomandibular joints, the hard palate, mandible, and temporomandibular joints appear normal. The mastoid air cells are clear. Cervical spine: No soft tissue abnormality is identified. The alignment is normal. The prevertebral soft tissue is normal in thickness. The bones are moderately osteopenic. Vertebral bodies in the cervical spine are normal in height without evidence of acute fracture. There is an age indeterminant, probably acute superior endplate compression fracture of the T1 vertebral body with loss of less than 25% height. Please refer to the report of a concurrent CT of the thoracic spine for further details. Other than moderate middle atlantoaxial joint osteoarthritis, the craniocervical junction appears normal. There is moderate to severe multilevel degenerative disc disease. The central canal is moderately stenotic at multiple levels. There are varying degrees of mild to moderate multiple facet osteoarthritis. There are varying degrees of mild to moderate multilevel uncovertebral joint osteoarthritis with the same degree of neural foraminal stenosis at these levels. Procedure Note Barb Zaldivar MD - 05/02/2024 PROCEDURE: CT HEAD WO CONTRAST, CT CERVICAL SPINE WO CONTRAST, CTFACIAL BONES WO CONTRAST, DATE/TIME OF EXAM: 05/02/2024 9:12 AM, LOCATION [facility] INDICATION: Trauma ADDITIONAL CLINICAL INFORMATION: Ordering Provider Reason For Exam: Technologist Note: Additional: EXAMINATION: 1. Computed tomography (CT) of the head without contrast 2. CT of the maxillofacial bones, orbits, and paranasal sinuses without contrast 3. CT of the cervical spine without contrast TECHNIQUE: CT of the head, cervical spine, and maxillofacial bones,orbits, and paranasal sinuses was performed without contrast according tostandard protocol. COMPARISON: No prior study is available for comparison at the time ofthis dictation. FINDINGS: Head: An acute subdural hematoma along the right cerebral convexity, measuringup to 7 mm in maximum thickness with regional mass effect withoutsignificant midline shift. Scattered subarachnoid hemorrhage in the bilateralfrontal cerebral sulci and the right sylvian fissure. The ventricles are ofnormal size, shape, and morphology. The basal cisterns are patent. Thegray-white matter differentiation is normal. Periventricular white matter hypoattenuation is a nonspecific finding that may be indicative ofchronic small vessel ischemic disease. There is atherosclerotic calcification of the carotid siphons. No acute calvarial fracture is identified. There is a large rightfrontal scalp laceration. There is an acute comminuted fracture of the right frontal bone adjacent to the scalp laceration with a 4 mm depression. Maxillofacial: The streaky and beam hardening artifacts from the dental restorations obscure a large portion of the oral cavity and the adjacent structures. Severe right facial soft tissue swelling. The orbits including the globes, optic nerves, retrobulbar fat and extraocular muscles appear normal. There is mild paranasal sinusdisease. Other than osteoarthritis of the temporomandibular joints, the hardpalate, mandible, and temporomandibular joints appear normal. The mastoid aircells are clear. Cervical spine: No soft tissue abnormality is identified. The alignment is normal. The prevertebral soft tissue is normal in thickness. The bones are moderately osteopenic. Vertebral bodies in the cervical spine are normal in height without evidence of acute fracture. There is an age indeterminant, probably acute superior endplatecompression fracture of the T1 vertebral body with loss of less than 25% height.Please refer to the report of a concurrent CT of the thoracic spine for further details. Other than moderate middle atlantoaxial joint osteoarthritis,the craniocervical junction appears normal. There is moderate to severe multilevel degenerative disc disease. The central canal is moderately stenotic at multiple levels. There are varying degrees of mild tomoderate multiple facet osteoarthritis. There are varying degrees of mild to moderate multilevel uncovertebral joint osteoarthritis with the samedegree of neural foraminal stenosis at these levels. IMPRESSION: 1. An acute subdural hematoma along the right cerebral convexity,measuring up to 7 mm in maximum thickness with regional mass effect without significant midline shift. Scattered subarachnoid hemorrhage in the bilateral frontal cerebral sulci and the right sylvian fissure. 2. An acute comminuted fracture of the right frontal bone with 4 mm of depression adjacent to a large right frontal scalp laceration. 3. No evidence of acute fracture in the cervical spine. 4. An age indeterminant, probably acute superior endplate compression fracture of the T1 vertebral body with loss of less than 25% height.Please refer to the report of a concurrent CT of the thoracic spine for further details. These findings were discussed in detail with the patient's careprovider, Dr. Cummins by Dr. Zaldivar via telephone at 10:25 AM on 05/02/2024 with readback comprehension and verification. > Interpreting Provider: Barb Zaldivar MD on 05/02/2024 10:25 AM Jean Contreras MD CT ORDERABLES * CT FACIAL BONES WO CONTRAST - Facial trauma, fx suspected, blunt (05/02/2024 10:31 AM [facility]) Anatomical Region Laterality Modality Head Computed Tomogra phy 05/02/2024 9:53 AM [facility] Impressions 05/02/2024 10:25 AM [facility] IMPRESSION: 1. An acute subdural hematoma along the right cerebral convexity, measuring up to 7 mm in maximum thickness with regional mass effect without significant midline shift. Scattered subarachnoid hemorrhage in the bilateral frontal cerebral sulci and the right sylvian fissure. 2. An acute comminuted fracture of the right frontal bone with 4 mm of depression adjacent to a large right frontal scalp laceration. 3. No evidence of acute fracture in the cervical spine. 4. An age indeterminant, probably acute superior endplate compression fracture of the T1 vertebral body with loss of less than 25% height. Please refer to the report of a concurrent CT of the thoracic spine for further details. These findings were discussed in detail with the patient's care provider, Dr. Cummins by Dr. Zaldivar via telephone at 10:25 AM on 05/02/2024 with readback comprehension and verification. > Interpreting Provider: Barb Zaldivar MD on 05/02/2024 10:25 AM Narrative 05/02/2024 10:25 AM [facility] PROCEDURE: CT HEAD WO CONTRAST, CT CERVICAL SPINE WO CONTRAST, CT FACIAL BONES WO CONTRAST, DATE/TIME OF EXAM: 05/02/2024 9:12 AM, LOCATION [facility] INDICATION: Trauma ADDITIONAL CLINICAL INFORMATION: Ordering Provider Reason For Exam: Technologist Note: Additional: EXAMINATION: 1. Computed tomography (CT) of the head without contrast 2. CT of the maxillofacial bones, orbits, and paranasal sinuses without contrast 3. CT of the cervical spine without contrast TECHNIQUE: CT of the head, cervical spine, and maxillofacial bones, orbits, and paranasal sinuses was performed without contrast according to standard protocol. COMPARISON: No prior study is available for comparison at the time of this dictation. FINDINGS: Head: An acute subdural hematoma along the right cerebral convexity, measuring up to 7 mm in maximum thickness with regional mass effect without significant midline shift. Scattered subarachnoid hemorrhage in the bilateral frontal cerebral sulci and the right sylvian fissure. The ventricles are of normal size, shape, and morphology. The basal cisterns are patent. The oseguera-white matter differentiation is normal. Periventricular white matter hypoattenuation is a nonspecific finding that may be indicative of chronic small vessel ischemic disease. There is atherosclerotic calcification of the carotid siphons. No acute calvarial fracture is identified. There is a large right frontal scalp laceration. There is an acute comminuted fracture of the right frontal bone adjacent to the scalp laceration with a 4 mm depression. Maxillofacial: The streaky and beam hardening artifacts from the dental restorations obscure a large portion of the oral cavity and the adjacent structures. Severe right facial soft tissue swelling. The orbits including the globes, optic nerves, retrobulbar fat and extraocular muscles appear normal. There is mild paranasal sinus disease. Other than osteoarthritis of the temporomandibular joints, the hard palate, mandible, and temporomandibular joints appear normal. The mastoid air cells are clear. Cervical spine: No soft tissue abnormality is identified. The alignment is normal. The prevertebral soft tissue is normal in thickness. The bones are moderately osteopenic. Vertebral bodies in the cervical spine are normal in height without evidence of acute fracture. There is an age indeterminant, probably acute superior endplate compression fracture of the T1 vertebral body with loss of less than 25% height. Please refer to the report of a concurrent CT of the thoracic spine for further details. Other than moderate middle atlantoaxial joint osteoarthritis, the craniocervical junction appears normal. There is moderate to severe multilevel degenerative disc disease. The central canal is moderately stenotic at multiple levels. There are varying degrees of mild to moderate multiple facet osteoarthritis. There are varying degrees of mild to moderate multilevel uncovertebral joint osteoarthritis with the same degree of neural foraminal stenosis at these levels. Procedure Note Barb Zaldivar MD - 05/02/2024 PROCEDURE: CT HEAD WO CONTRAST, CT CERVICAL SPINE WO CONTRAST, CTFACIAL BONES WO CONTRAST, DATE/TIME OF EXAM: 05/02/2024 9:12 AM, LOCATION [facility] INDICATION: Trauma ADDITIONAL CLINICAL INFORMATION: Ordering Provider Reason For Exam: Technologist Note: Additional: EXAMINATION: 1. Computed tomography (CT) of the head without contrast 2. CT of the maxillofacial bones, orbits, and paranasal sinuses without contrast 3. CT of the cervical spine without contrast TECHNIQUE: CT of the head, cervical spine, and maxillofacial bones,orbits, and paranasal sinuses was performed without contrast according tostandard protocol. COMPARISON: No prior study is available for comparison at the time ofthis dictation. FINDINGS: Head: An acute subdural hematoma along the right cerebral convexity, measuringup to 7 mm in maximum thickness with regional mass effect withoutsignificant midline shift. Scattered subarachnoid hemorrhage in the bilateralfrontal cerebral sulci and the right sylvian fissure. The ventricles are ofnormal size, shape, and morphology. The basal cisterns are patent. Thegray-white matter differentiation is normal. Periventricular white matter hypoattenuation is a nonspecific finding that may be indicative ofchronic small vessel ischemic disease. There is atherosclerotic calcification of the carotid siphons. No acute calvarial fracture is identified. There is a large rightfrontal scalp laceration. There is an acute comminuted fracture of the right frontal bone adjacent to the scalp laceration with a 4 mm depression. Maxillofacial: The streaky and beam hardening artifacts from the dental restorations obscure a large portion of the oral cavity and the adjacent structures. Severe right facial soft tissue swelling. The orbits including the globes, optic nerves, retrobulbar fat and extraocular muscles appear normal. There is mild paranasal sinusdisease. Other than osteoarthritis of the temporomandibular joints, the hardpalate, mandible, and temporomandibular joints appear normal. The mastoid aircells are clear. Cervical spine: No soft tissue abnormality is identified. The alignment is normal. The prevertebral soft tissue is normal in thickness. The bones are moderately osteopenic. Vertebral bodies in the cervical spine are normal in height without evidence of acute fracture. There is an age indeterminant, probably acute superior endplatecompression fracture of the T1 vertebral body with loss of less than 25% height.Please refer to the report of a concurrent CT of the thoracic spine for further details. Other than moderate middle atlantoaxial joint osteoarthritis,the craniocervical junction appears normal. There is moderate to severe multilevel degenerative disc disease. The central canal is moderately stenotic at multiple levels. There are varying degrees of mild tomoderate multiple facet osteoarthritis. There are varying degrees of mild to moderate multilevel uncovertebral joint osteoarthritis with the samedegree of neural foraminal stenosis at these levels. IMPRESSION: 1. An acute subdural hematoma along the right cerebral convexity,measuring up to 7 mm in maximum thickness with regional mass effect without significant midline shift. Scattered subarachnoid hemorrhage in the bilateral frontal cerebral sulci and the right sylvian fissure. 2. An acute comminuted fracture of the right frontal bone with 4 mm of depression adjacent to a large right frontal scalp laceration. 3. No evidence of acute fracture in the cervical spine. 4. An age indeterminant, probably acute superior endplate compression fracture of the T1 vertebral body with loss of less than 25% height.Please refer to the report of a concurrent CT of the thoracic spine for further details. These findings were discussed in detail with the patient's careprovider, Dr. Cummins by Dr. Zaldivar via telephone at 10:25 AM on 05/02/2024 with readback comprehension and verification. > Interpreting Provider: Barb Zaldivar MD on 05/02/2024 10:25 AM Jean Contreras MD CT ORDERABLES * BLOOD TYPE VERIFICATION (05/02/2024 10:13 AM [facility]) ABO Rh O POS 05/02/2024 11:04 AM [facility]OD [facility] Blood Bank BLOOD SPECIMEN / Unknown Venipuncture / Unknown 05/02/2024 10:13 AM [facility] 05/02/2024 10:23 AM [facility] Jean Contreras MD LAB - BLOOD BANK O RDERABLES [facility] [address] [place] [address], [facility] [phone] * XR CHEST 1VW PORTABLE (05/02/2024 9:26 AM [facility]) Anatomical Region Laterality Modality Chest Digital Radiogra phy 05/02/2024 9:18 AM [facility] Impressions 05/02/2024 9:31 AM [facility] IMPRESSION: Minimal left base atelectasis. No traumatic finding. Report dictated by Nino Albarran MD, (Integrated [facility]] resident). I, Nati Cerrato MD have personally reviewed and interpreted this examination/study. > Interpreting Provider: Nati Cerrato MD on 05/02/2024 9:31 AM Narrative 05/02/2024 9:31 AM [facility] PROCEDURE: XR CHEST 1VW PORTABLE, DATE/TIME OF EXAM: 05/02/2024 9:26 AM, LOCATION [facility] INDICATION: Trauma COMPARISON: None. FINDINGS: Cervical collar is in place. There is minimal basilar left lower lung field atelectasis. Small calcified nodule in the right midlung field. There is no focal consolidation, pleural effusion, or pneumothorax. The cardiac silhouette is normal. There is atherosclerotic calcification of the aorta. Mediastinal contours are normal. There is no acute osseous abnormality. Procedure Note Nati Cerrato MD - 05/02/2024 PROCEDURE: XR CHEST 1VW PORTABLE, DATE/TIME OF EXAM: 05/02/2024 9:26 AM, LOCATION [facility] INDICATION: Trauma COMPARISON: None. FINDINGS: Cervical collar is in place. There is minimal basilar left lower lung field atelectasis. Smallcalcified nodule in the right midlung field. There is no focal consolidation,pleural effusion, or pneumothorax. The cardiac silhouette is normal. There is atherosclerotic calcification of the aorta. Mediastinal contours are normal. There is no acute osseous abnormality. IMPRESSION: Minimal left base atelectasis. No traumatic finding. Report dictated by Nino Albarran MD, ([facility]ated [facility] resident). Nati Natarajan MD have personally reviewed and interpreted this examination/study. > Interpreting Provider: Nati Cerrato MD on 05/02/2024 9:31 AM Jean Contreras MD DIAGNOSTIC IMAGING ORDERABLES * XR PELVIS 1 OR 2VW (05/02/2024 9:26 AM [facility]) Anatomical Region Laterality Modality Pelvis Digital Radiogra phy 05/02/2024 9:22 AM [facility] Impressions 05/02/2024 9:33 AM [facility] IMPRESSION: No acute fracture identified. Report was dictated by Nino Albarran M.D. ([facility] resident). Nati Natarajan MD have personally reviewed and interpreted this examination/study. > Interpreting Provider: Nati Cerrato MD on 05/02/2024 9:33 AM Narrative 05/02/2024 9:33 AM [facility] PROCEDURE: XR PELVIS 1 OR 2VW, DATE/TIME OF EXAM: 05/02/2024 9:13 AM, LOCATION [facility] INDICATION: Trauma Fracture suspected ADDITIONAL CLINICAL INFORMATION: COMPARISON: None. FINDINGS: No acute fracture is identified. The femoral heads appear well-seated within their respective acetabula. The pubic symphysis is intact. Bone density and texture are normal. There is degenerative change of the lower lumbar spine. Procedure Note Nati Cerrato MD - 05/02/2024 PROCEDURE: XR PELVIS 1 OR 2VW, DATE/TIME OF EXAM: 05/02/2024 9:13 AM, LOCATION [facility] INDICATION: Trauma Fracture suspected ADDITIONAL CLINICAL INFORMATION: COMPARISON: None. FINDINGS: No acute fracture is identified. The femoral heads appear well-seated within their respective acetabula. The pubic symphysis is intact. Bone density and texture are normal. There is degenerative change of thelower lumbar spine. IMPRESSION: No acute fracture identified. Report was dictated by Nino Albarran M.D. ([facility] resident). INati MD have personally reviewed and interpreted this examination/study. > Interpreting Provider: Nati Cerrato MD on 05/02/2024 9:33 AM Jean Contreras MD DIAGNOSTIC IMAGING ORDERABLES * PTT [facility] (05/02/2024 9:23 AM [facility]) APTT 28.3 23.0 - 38.4 Seconds 05/02/2024 10:08 AM [facility] Comment:Suggested therapeuti c range for full dose I.V. unfractionated heparin therapy for venous thromboembolism is 71 to 109 seconds. Blood BLOOD SPECIMEN / Unknown Venipuncture / Unknown 05/02/2024 9:23 AM [facility] 05/02/2024 9:34 AM [facility] Jean Contreras MD LAB - COAGULATION ORDERABLES [facility] [address] [place] [id number], [facility] [phone] * (ABNORMAL) PT-INR [facility] (05/02/2024 9:23 AM [facility]) PT 15.8(H) 12.1 - 14.8 Seconds 05/02/2024 10:08 AM [facility] INR 1.3 See Comment 05/02/2024 10:08 AM [facility] Comment:The suggested therap eutic range for standard coumadin (warfarin) therapy is an INR of 2.0-3.0. For high-risk patients (Mechanical Mitral Valve Prosthesis, etc.), the suggested prophylactic therapeutic range is an INR of 2.5-3.5. Blood BLOOD SPECIMEN / Unknown Venipuncture / Unknown 05/02/2024 9:23 AM [facility] 05/02/2024 9:34 AM [facility] Jean Contreras MD LAB - COAGULATION ORDERABLES Performing Organization Address [facility]/ZIP Co de Phone Number [address] [address], [place] [phone] * TYPE + SCREEN PANEL (05/02/2024 9:23 AM [facility]) Antibody Screen NEG 10:34 AM [facility]OD [facility] ABO Rh O POS 05/02/2024 10:34 AM [facility]OD [facility] LAB Blood Bank BLOOD SPECIMEN / Unknown Venipuncture / Unknown 05/02/2024 9:23 AM [facility] 05/02/2024 10:31 AM [facility] Jean Contreras MD LAB - BLOOD BANK O RDERABLES Performing Organization Address [facility] Co de Phone Number [facility]OD [facility] [address] [place] [phone], [place] [phone] * LIPASE BLOOD (05/02/2024 9:23 AM [facility]) Lipase 34 8 - 78 U/L 05/02/2024 10:09 AM [facility] Blood BLOOD SPECIMEN / Unknown Venipuncture / Unknown 05/02/2024 9:23 AM [facility] 05/02/2024 9:34 AM [facility] Narrative [facility] - 05/02/2024 10:09 AM [facility] Lipase results from the [employer] Alinity analyzer may not be comparable with other methodologies. 

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
--- OUTSIDE RECORDS SUMMARY | 2024-06-11 14:16 | XMS_ITS | Patient Health Summary ---
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 Provider: Roque Tineo MD on 05/02/2024 4:39 PM Narrative 05/02/2024 4:39 PM [employer]OUNTAIN SUPERVISOR PROCEDURE: CT CHEST ABDOMEN PELVIS W CONT, DATE/TIME OF EXAM: 05/02/2024 10:33 AM, LOCATION [facility] INDICATION: Trauma ADDITIONAL CLINICAL INFORMATION: Ordering Provider [...] DATE/TIME OF EXAM: 05/02/2024 10:33 AM, LOCATION [facility] INDICATION: Trauma ADDITIONAL CLINICAL INFORMATION: Ordering Provider [...] indicated. > Dictated by Mary Peres MD, (academic vice president). IRoque MD have personally reviewed and interpreted this examination/study. > Interpreting Provider: Roque Tineo MD on 05/02/2024 4:39 PM Jean Contreras MD CT ORDERABLES * CT LUMBAR SPINE WO CONTRAST - T/L-spine trauma, Spine fracture (05/02/2024 10:31 AM [employer]OUNTAIN SUPERVISOR) Anatomical Region Laterality Modality Spine Computed Tomogra phy 05/02/2024 11:0 9 AM [employer]OUNTAIN SUPERVISOR Impressions 05/02/2024 11:09 AM FOUNTAIN SUPERVISOR IMPRESSION: 1. An age indeterminant compression fracture of the superior endplate of T1 with loss of approximately 25% height. If clinically indicated, a thoracic spine MRI may be considered to further evaluate to determine the acuity of this fracture. 2. No evidence of acute fracture in the lumbar spine. > Interpreting Provider: Barb Zaldivar MD on 05/02/2024 11:09 AM Narrative 05/02/2024 11:09 AM [employer]OUNTAIN SUPERVISOR PROCEDURE: CT LUMBAR SPINE WO CONTRAST PROCEDURE: CT THORACIC SPINE WO CONTRAST, DATE/TIME OF EXAM: 05/02/2024 10:33 AM, LOCATION [facility] INDICATION: Trauma ADDITIONAL CLINICAL INFORMATION: Ordering Provider [...] DATE/TIME OF EXAM: 05/02/2024 10:33 AM, LOCATION [facility] INDICATION: Trauma ADDITIONAL CLINICAL INFORMATION: Ordering Provider [...] T/L-spine trauma, spine fracture (05/02/2024 10:31 AM FOUNTAIN SUPERVISOR) Anatomical Region Laterality Modality Spine Computed Tomogra phy 05/02/2024 10:4 9 AM [employer]OUNTAIN SUPERVISOR Impressions 05/02/2024 11:02 AM [employer]OUNTAIN SUPERVISOR IMPRESSION: 1. An age indeterminant compression fracture of the superior endplate of T1 with loss of approximately 25% height. If clinically indicated, a thoracic spine MRI may be considered to further evaluate to determine the acuity of this fracture. 2. No evidence of acute fracture in the lumbar spine. > Interpreting Provider: Barb Zaldivar MD on 05/02/2024 11:02 AM Narrative 05/02/2024 11:02 AM FOUNTAIN SUPERVISOR PROCEDURE: CT THORACIC SPINE WO CONTRAST, DATE/TIME OF EXAM: 05/02/2024 10:33 AM, LOCATION [facility] INDICATION: Trauma ADDITIONAL CLINICAL INFORMATION: Ordering Provider [...] DATE/TIME OF EXAM: 05/02/2024 10:33 AM, LOCATION [facility] INDICATION: Trauma ADDITIONAL CLINICAL INFORMATION: Ordering Provider [...] C-Spine Trauma, Spine fracture (05/02/2024 10:31 AM FOUNTAIN SUPERVISOR) Anatomical Region Laterality Modality Spine Computed Tomogra phy 05/02/2024 9:53 AM [employer]OUNTAIN SUPERVISOR Impressions 05/02/2024 10:25 AM [employer]OUNTAIN SUPERVISOR IMPRESSION: 1. An acute subdural hematoma along [...] 05/02/2024 10:25 AM Narrative 05/02/2024 10:25 AM FOUNTAIN SUPERVISOR PROCEDURE: CT HEAD WO CONTRAST, CT CERVICAL SPINE WO CONTRAST, CT FACIAL BONES WO CONTRAST, DATE/TIME OF EXAM: 05/02/2024 9:12 AM, LOCATION [facility] INDICATION: Trauma ADDITIONAL CLINICAL INFORMATION: Ordering Provider [...] DATE/TIME OF EXAM: 05/02/2024 9:12 AM, LOCATION [facility] INDICATION: Trauma ADDITIONAL CLINICAL INFORMATION: Ordering Provider [...] trauma, fx suspected, blunt (05/02/2024 10:31 AM FOUNTAIN SUPERVISOR) Anatomical Region Laterality Modality Head Computed Tomogra phy 05/02/2024 9:53 AM FOUNTAIN SUPERVISOR Impressions 05/02/2024 10:25 AM [employer]OUNTAIN SUPERVISOR IMPRESSION: 1. An acute subdural hematoma along [...] 05/02/2024 10:25 AM Narrative 05/02/2024 10:25 AM FOUNTAIN SUPERVISOR PROCEDURE: CT HEAD WO CONTRAST, CT CERVICAL SPINE WO CONTRAST, CT FACIAL BONES WO CONTRAST, DATE/TIME OF EXAM: 05/02/2024 9:12 AM, LOCATION [facility] INDICATION: Trauma ADDITIONAL CLINICAL INFORMATION: Ordering Provider [...] DATE/TIME OF EXAM: 05/02/2024 9:12 AM, LOCATION [facility] INDICATION: Trauma ADDITIONAL CLINICAL INFORMATION: Ordering Provider [...] * BLOOD TYPE VERIFICATION (05/02/2024 10:13 AM FOUNTAIN SUPERVISOR) ABO Rh O POS 05/02/2024 11:04 AM FOUNTAIN SUPERVISOR [facility] Blood Bank BLOOD SPECIMEN / Unknown Venipuncture / Unknown 05/02/2024 10:13 AM FOUNTAIN SUPERVISOR 05/02/2024 10:23 AM [employer]OUNTAIN SUPERVISOR Jean Contreras MD LAB - BLOOD BANK O RDERABLES [facility] [address] [place] [address], [facility] [phone] * XR CHEST 1VW PORTABLE (05/02/2024 9:26 AM FOUNTAIN SUPERVISOR) Anatomical Region Laterality Modality Chest Digital Radiogra phy 05/02/2024 9:18 AM FOUNTAIN SUPERVISOR Impressions 05/02/2024 9:31 AM FOUNTAIN SUPERVISOR IMPRESSION: Minimal left base atelectasis. No traumatic finding. Report dictated by Nino Albarran MD, ([facility]ated [facility] resident). I, Nati Cerrato MD have personally reviewed and interpreted this examination/study. > Interpreting Provider: Nati Cerrato MD on 05/02/2024 9:31 AM Narrative 05/02/2024 9:31 AM FOUNTAIN SUPERVISOR PROCEDURE: XR CHEST 1VW PORTABLE, DATE/TIME OF EXAM: 05/02/2024 9:26 AM, LOCATION [facility] INDICATION: Trauma COMPARISON: None. FINDINGS: Cervical collar [...] DATE/TIME OF EXAM: 05/02/2024 9:26 AM, LOCATION [facility] INDICATION: Trauma COMPARISON: None. FINDINGS: Cervical collar [...] PELVIS 1 OR 2VW (05/02/2024 9:26 AM FOUNTAIN SUPERVISOR) Anatomical Region Laterality Modality Pelvis Digital Radiogra phy 05/02/2024 9:22 AM FOUNTAIN SUPERVISOR Impressions 05/02/2024 9:33 AM FOUNTAIN SUPERVISOR IMPRESSION: No acute fracture identified. Report was dictated by Nino Albarran M.D. ([facility] resident). Nati Natarajan MD have personally reviewed and interpreted this examination/study. > Interpreting Provider: Nati Cerrato MD on 05/02/2024 9:33 AM Narrative 05/02/2024 9:33 AM FOUNTAIN SUPERVISOR PROCEDURE: XR PELVIS 1 OR 2VW, DATE/TIME OF EXAM: 05/02/2024 9:13 AM, LOCATION [facility] INDICATION: Trauma Fracture suspected ADDITIONAL CLINICAL INFORMATION: [...] DATE/TIME OF EXAM: 05/02/2024 9:13 AM, LOCATION [facility] INDICATION: Trauma Fracture suspected ADDITIONAL CLINICAL INFORMATION: COMPARISON: None. FINDINGS: No acute fracture is identified. The femoral heads appear well-seated within their respective acetabula. The pubic symphysis is intact. Bone density and texture are normal. There is degenerative change of thelower lumbar spine. IMPRESSION: No acute fracture identified. Report was dictated by Nino Albarran M.D. ([facility] resident). Nati Natarajan MD have personally reviewed and interpreted this examination/study. > Interpreting Provider: Nati Cerrato MD on 05/02/2024 9:33 AM Jean Contreras MD DIAGNOSTIC IMAGING ORDERABLES * PTT [facility] (05/02/2024 9:23 AM FOUNTAIN SUPERVISOR) APTT 28.3 23.0 - 38.4 Seconds 05/02/2024 10:08 AM [facility] Comment:Suggested therapeuti c range for full dose I.V. unfractionated heparin therapy for venous thromboembolism is 71 to 109 seconds. Blood BLOOD SPECIMEN / Unknown Venipuncture / Unknown 05/02/2024 9:23 AM FOUNTAIN SUPERVISOR 05/02/2024 9:34 AM FOUNTAIN SUPERVISOR Jean Contreras MD LAB - COAGULATION ORDERABLES [facility] [address] [place] [address], [facility] [phone] * (ABNORMAL) PT-INR [facility] (05/02/2024 9:23 AM FOUNTAIN SUPERVISOR) PT 15.8(H) 12.1 - 14.8 Seconds 05/02/2024 10:08 AM [facility] INR 1.3 See Comment 05/02/2024 10:08 AM [facility] Comment:The suggested therap eutic range for standard coumadin (warfarin) therapy is an INR of 2.0-3.0. For high-risk patients (Mechanical Mitral Valve Prosthesis, etc.), the suggested prophylactic therapeutic range is an INR of 2.5-3.5. Blood BLOOD SPECIMEN / Unknown Venipuncture / Unknown 05/02/2024 9:23 AM FOUNTAIN SUPERVISOR 05/02/2024 9:34 AM FOUNTAIN SUPERVISOR Jean Contreras MD LAB - COAGULATION ORDERABLES Performing Organization Address [facility]/ZIP Co de Phone Number [address] [address], [place] [phone] * TYPE + SCREEN PANEL (05/02/2024 9:23 AM FOUNTAIN SUPERVISOR) Antibody Screen NEG 10:34 AM FOUNTAIN SUPERVISOR [facility] ABO Rh O POS 05/02/2024 10:34 AM FOUNTAIN SUPERVISOR [facility] Blood Bank BLOOD SPECIMEN / Unknown Venipuncture / Unknown 05/02/2024 9:23 AM FOUNTAIN SUPERVISOR 05/02/2024 10:31 AM FOUNTAIN SUPERVISOR Jean Contreras MD LAB - BLOOD BANK O RDERABLES Performing Organization Address [facility] Co de Phone Number [facility] [address] [place] [address], [place] [phone] * LIPASE BLOOD (05/02/2024 9:23 AM FOUNTAIN SUPERVISOR) Lipase 34 8 - 78 U/L 05/02/2024 10:09 AM [facility] Blood BLOOD SPECIMEN / Unknown Venipuncture / Unknown 05/02/2024 9:23 AM FOUNTAIN SUPERVISOR 05/02/2024 9:34 AM FOUNTAIN SUPERVISOR Narrative [facility] - 05/02/2024 10:09 AM FOUNTAIN SUPERVISOR Lipase results from the [employer] Alinity analyzer may not be comparable with other methodologies. Jean Contreras MD LAB - CHEMISTRY OR DERABLES Performing Organization Address [facility]/ZIP Co de Phone Number [address] [address], [place] [phone] Care Teams Library Science Instructor Relationship Specialty Start Date End Date Cuco Solis DO [address] [place], [place] [id number] PCP - General Family Medicine 05/02/24 Frederic Nj DO [address] [facility] [address] [place] [address] Internal Medicine 06/06/24
[2024-06-11 14:24] LABS: Alanine Aminotransferase 21 U/L (6-35); Albumin Level 4.5 g/dL (3.5-5.1); Alkaline Phosphatase 87 U/L (38-126); Anion Gap 17 mmol/L (4-12); Aspartate Amino Transferase 28 U/L (14-36); Bilirubin,Total 1.6 mg/dL (0.2-1.3); Blood Urea Nitrogen 32 mg/dL (7-17); Calcium 10.5 mg/dL (8.4-10.2); Carbon Dioxide 24 mmol/L (22-30); Chloride 100 mmol/L (98-107); Estimated Glomerular Filt Rate 34; Glucose 112 mg/dL (65-110); Potassium 3.7 mmol/L (3.4-5.0); Sodium 141 mmol/L (137-145)
[2024-06-11 14:42] LABS: Troponin I 0.043 ng/mL (0.000-0.034)
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
--- OUTSIDE RECORDS SUMMARY | 2024-06-11 14:50 | XMS_ITS | Patient Health Summary ---
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 examination/study. > Interpreting Provider: Nati Cerrato MD on 05/02/2024 9:33 AM Jean Contreras MD DIAGNOSTIC IMAGING ORDERABLES * PTT [facility] (05/02/2024 9:23 AM [facility]) APTT 28.3 23.0 - 38.4 Seconds 05/02/2024 10:08 AM [facility] Comment:Suggested therapeuti c range for full dose I.V. unfractionated heparin therapy for venous thromboembolism is 71 to 109 seconds. Blood BLOOD SPECIMEN / Unknown Venipuncture / Unknown 05/02/2024 9:23 AM [facility] 05/02/2024 9:34 AM [facility] Jean Contreras MD LAB - COAGULATION ORDERABLES [facility] [address] [place] [address], [facility] [phone] * (ABNORMAL) PT-INR [facility] (05/02/2024 9:23 AM [facility]) PT 15.8(H) 12.1 - 14.8 Seconds 05/02/2024 10:08 AM [facility] INR 1.3 See Comment 05/02/2024 10:08 AM [facility] Comment:The suggested therap eutic range for standard coumadin (warfarin) therapy is an INR of 2.0-3.0. For high-risk patients (Mechanical Mitral Valve Prosthesis, etc.), the suggested prophylactic therapeutic range is an INR of 2.5-3.5. Blood BLOOD SPECIMEN / Unknown Venipuncture / Unknown 05/02/2024 9:23 AM [facility] 05/02/2024 9:34 AM [facility] Jean Contreras MD LAB - COAGULATION ORDERABLES Performing Organization Address [facility]/ZIP Co de Phone Number [address] [address], [place] [phone] * TYPE + SCREEN PANEL (05/02/2024 9:23 AM [facility]) Antibody Screen NEG 10:34 AM [facility] BLOOD [facility] LAB ABO Rh O POS 05/02/2024 10:34 AM [facility] LAB Blood Bank BLOOD SPECIMEN / Unknown Venipuncture / Unknown 05/02/2024 9:23 AM [facility] 05/02/2024 10:31 AM [facility] Jean Contreras MD LAB - BLOOD BANK O RDERABLES Performing Organization Address [facility] Co de Phone Number [facility] B[facility]OD [facility] LAB [address] [place] [id number], [place] [phone] * LIPASE BLOOD (05/02/2024 9:23 AM [facility]) Lipase 34 8 - 78 U/L 05/02/2024 10:09 AM [facility] Blood BLOOD SPECIMEN / Unknown Venipuncture / Unknown 05/02/2024 9:23 AM [facility] 05/02/2024 9:34 AM [facility] Narrative [facility] - 05/02/2024 10:09 AM [facility] Lipase results from the [employer] Al[employer] analyzer may not be comparable with other methodologies. Jean Contreras MD LAB - CHEMISTRY OR DERABLES Performing Organization Address [facility]/ZIP Co de Phone Number [address] [address], [place] [phone] Care Teams Physical Education Instructor Relationship Specialty Start Date End Date Cuco Solis DO [address] [place], [place] [id number] PCP - General Family Medicine 05/02/24 Frederic Nj DO [address] [facility] [address] [place] [address] Internal Medicine 06/06/24
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
--- NOTE | 2024-06-11 15:06 | ECG_ITS ---
Test Date: 2024-06-11 13:41:20 Measurements Intervals [place] Rate: 64 P: 47 WY: 264 QRS: -15 QRSD: 88 T: 99 QT: 336 QTc: 349 Interpretive Statements SINUS RHYTHM WITH FIRST DEGREE AV BLOCK DELAYED PRECORDIAL R/S TRANSITION CONSIDER INFERIOR INFARCT, AGE INDETERMINATE BORDERLINE ST-T WAVE ABNORMALITY- ANTEROLAT/HIGH LAT LEADS BASELINE ARTIFACT- I, II, AVR, AVL ABNORMAL ECG Compared to ECG 04/30/2024 08:52:53 ATRIAL FIBRILLATION NO LONGER PRESENT Electronically Signed On 06-11-2024 20:10:44 OIL AGENT by Frederic Nj D.O.
--- NOTE | 2024-06-11 15:56 | ECG_ITS ---
Test Date: 2024-06-11 15:58:24 Measurements Intervals [place] Rate: 37 P: 184 [place]: 240 QRS: -18 QRSD: 90 T: 151 QT: 504 QTc: 397 Interpretive Statements SLOW SINUS BRADYCARDIA WITH FIRST DEGREE AV BLOCK DELAYED PRECORDIAL R/S TRANSITION ST DEVIATION AND MODERATE T-WAVE ABNORMALITY IN HIGH LATERAL LEADS- CONSIDER ISCHEMIA ABNORMAL ECG Compared to ECG 06/11/2024 13:41:20 HEART RATE HAS DECREASED Possible ischemia now present Electronically Signed On 06-11-2024 20:13:02 MAINTENANCE MECHANIC ELEVATORS by Frederic Nj D.O.
--- NOTE | 2024-06-11 16:48 | ECG_ITS ---
Test Date: 2024-06-11 17:00:04 Measurements Intervals [place] Rate: 61 P: 51 TN: 289 QRS: -19 QRSD: 88 T: 103 QT: 404 QTc: 409 Interpretive Statements SINUS RHYTHM WITH FIRST DEGREE AV BLOCK DELAYED PRECORDIAL R/S TRANSITION NONSPECIFIC ST & T-WAVE ABNORMALITY- ANTEROLAT/HIGH LAT LEADS BORDERLINE ECG Compared to ECG 06/11/2024 15:58:24 HEART RATE HAS INCREASED Possible ischemia no longer present Electronically Signed On 06-11-2024 20:14:45 GRADE CHECKER by Frederic Nj D.O.
[2024-06-11 17:04] LABS: Troponin I 0.028 ng/mL (0.000-0.034)
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
--- NOTE | 2024-06-11 22:13 | ADMGEN ---
This patient, Yasmeen Welch, was admitted to [facility] Surg Room 331-02. Patient/family oriented to hospital policies and general routines including ID bracelet, bed and alarms, visiting hours, pain management, procedures, bathroom and other care routines, personal items, smoking policy, room service/diet, and visiting hours. Information on how to activate the Rapid Response Team has been discussed. Patient/Family are encouraged to report perceived risks to care and to ask questions if they do not understand what they are told or what they should do.
[2024-06-12] VITALS (9 sets, daily range): BP systolic 126–163; BP diastolic 46–71; PULSE 54–98; RESP 16–18; TEMP 36.3–37.5; O2SAT 94–97
--- NOTE | 2024-06-12 | ECHO_ITS ---
Patient Info Name: Yasmeen Welch Age: 88 years : 1935 Gender: Female Ht: 50 in Wt: 134 lbs BSA: 1.51 m2 HR: 54 bpm BP: 163 / 71 mmHg Heart Rhythm: Bradycardia Technical Quality: Fair Exam Date: 06/12/2024 8:34 AM Exam Location: Echo Lab Patient Status: Inpatient Admit Date: 06/12/2024 Staff Ordering Physician: Frederic Nj DO Health Aide: Poonam Grady RDCS Attending Provider: Azar Ramirez MD Referring Physician: Clem ALVAREZ; Exam Type: CA echo doppler color flow Study Info Indications R00.1 - Bradycardia, unspecified Complete two-dimensional, color flow and Doppler transthoracic echocardiogram is performed. History/Risk Factors Hypertension: Yes Dyslipidemia: Yes Diabetes Mellitus: Type II Tobacco Use: Former Summary 1. Complete two-dimensional, color flow and Doppler transthoracic echocardiogram is performed. 2. Left ventricular chamber dimension is normal. 3. Left ventricular systolic function is normal, estimated at 60-65%. 4. The left ventricular diastolic function is grade I diastolic dysfunction. 5. E/e' 17 is elevated. 6. Left atrial chamber dimension is mildly enlarged. 7. There is moderate aortic valve sclerosis. 8. There is mild tricuspid valve regurgitation. 9. No pulmonary hypertension, estimated pulmonary arterial systolic pressure is 35 mmHg. 10. There is trace pulmonic regurgitation. Recommendations * Continue medical therapy for diabetes. Left Ventricle E/e' 17 is elevated. Left ventricular chamber dimension is normal. Left ventricular systolic function is normal, estimated at 60-65%. The left ventricular diastolic function is grade I diastolic dysfunction. Right Ventricle Right ventricular systolic function is normal and with normal TAPSE 2.2 cm. Right ventricular chamber dimension is normal. Left Atria Left atrial chamber dimension is mildly enlarged. Right Atria Right atrial chamber dimension is normal. Aortic Valve The aortic valve is trileaflet. There is moderate aortic valve sclerosis. There is no aortic valve stenosis. There is no aortic valve regurgitation. Pulmonic Valve There is trace pulmonic regurgitation. Mitral Valve There is no mitral valve stenosis. There is no mitral valve regurgitation. Tricuspid Valve There is mild tricuspid valve regurgitation. No pulmonary hypertension, estimated pulmonary arterial systolic pressure is 35 mmHg. Pericardium/Pleural There is no pericardial effusion. Inferior Vena Cava Normal inferior vena cava with >50% collapse upon inspiration consistent with normal right atrial pressure, 5 mmHg. Aorta The aortic root size at the sinus of Valsalva is normal. Left Ventricular Outflow Tract Name Value Normal LVOT 2D LVOT Diameter 2.0 cm LVOT Doppler LVOT Peak Gradient 6 mmHg LVOT Mean Gradient 3 mmHg LVOT VTI 32 cm LVOT VTI/AV VTI Ratio 0.8 LVOT Stroke Volume 98 ml LVOT CO 3.5 l/min LVOT CI 2.3 l/min/m2 Pulmonic Valve Name Value Normal RVOT Doppler RVOT Peak Gradient 2 mmHg PV Doppler PV Peak Gradient 6 mmHg Mitral Valve Name Value Normal MV Doppler MV Decel [place] 779 cm/s2 MV PHT 36 ms MV Area (PHT) 6.1 cm2 4.0-5.0 MV Diastolic Function MV E Peak Velocity 96 cm/s MV A Peak Velocity 101 cm/s MV E/A 1.0 MV Decel Time 123 ms MV Annular TDI MV E/e' (Septal) 20.6 <=8.0 MV E/e' (Lateral) 14.9 <=8.0 MV E/e' (Average) 17.7 Tricuspid Valve Name Value Normal TV Regurgitation Doppler TR Peak Velocity 275 cm/s TR Peak Gradient 27 mmHg Estimated PAP/RSVP RA Pressure 5 mmHg <=5 PA Systolic Pressure 35 mmHg <36 RV Systolic Pressure 35 mmHg <36 Aorta Name Value Normal Ascending Aorta Ao Root Diameter (MM) 2.7 cm Ao Root Diam Index (MM) 1.8 cm/m2 Aortic Valve Name Value Normal AV Doppler AV Peak Velocity 228 cm/s AV Peak Gradient 21 mmHg AV Mean Gradient 9 mmHg AV VTI 41 cm AV Area (Cont Eq VTI) 2.4 cm2 >=3.0 AV Area (Cont Eq Mark) 1.6 cm2 AV Regurgitation 2D LVOT Area 3.0 cm2 Ventricles Name Value Normal LV Dimensions 2D/MM IVS Diastolic Thickness (2D) 0.8 cm 0.6-1.0 LVID Diastole (2D) 5.3 cm 3.8-5.2 LVIW Diastolic Thickness (2D) 0.8 cm 0.6-0.9 LVID Systole (2D) 3.6 cm 2.2-3.5 LVOT Diameter 2.0 cm LV Mass (2D Cubed) 146.18 g 67.00-162.00 LV Mass Index (2D Cubed) 97 g/m2 43-95 Relative Wall Thickness (2D) 0.29 LV Fractional Shortening/Ejection Fraction 2D/MM LV Fractional Shortening (2D) 32 % 27-45 LV EF (2D Teicholz) 60 % 54-74 LV Diastolic Volume (4C MOD) 49 ml LV EF (4C MOD) 76 % LV Diastolic Volume (2C MOD) 42 ml LV EF (2C MOD) 74 % LV Diastolic Volume (BP MOD) 45 ml 46-106 LV Diastolic Volume Index (BP MOD) 30 ml/m2 29-61 LV Systolic Volume (BP MOD) 11 ml 14-42 LV Systolic Volume Index (BP MOD) 7 ml/m2 8-24 LV EF (BP MOD) 75 % 54-74 LV Diastolic Length (4C) 6.5 cm LV Systolic Length (4C) 5.4 cm LV Stroke Volume (4C MOD) 38 ml Atria Name Value Normal LA Dimensions LA Dimension (MM) 5.4 cm 2.7-3.8 LA Volume (4C A-L) 58 ml LA Volume (BP A-L) 62 ml RA Dimensions RA Area (4C) 13.7 cm2 <=18.0 Report Signatures
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
[2024-06-12] MEDS: LACTATED RINGERS 1,000 ML 100 ML IV CONT ×2 (01:53→21:01)
[2024-06-12 05:31] LABS: Add Urine Microscopic? YES; Appearance Urine Clear (Clear); Bacteria Urine None Seen /hpf; Bilirubin Urine Negative (Negative); Blood Urine Negative (Negative); Color Urine Yellow (Yellow); Glucose Urine UA 3+ mg/dL (Negative); Ketones Urine Negative (Negative); Leukocyte Esterase Ur Negative LEU/UL (Negative); Nitrate Urine Negative (Negative); Non Pathogenic Casts 0-2; Protein Urine Trace mg/dL (Negative); RBC Urine 0-2 /hpf (0-2); Specific Grav Ur 1.044 (1.001-1.035); Squamous Epithelial Cell Urine None Seen /hpf (Few); WBC Urine 0-5 /hpf (0-3); pH Urine 5.5 (5.0-9.0)
[2024-06-12 05:35] LABS: Creatinine Urine 90.5 mg/dL
[2024-06-12 05:39] LABS: Sodium Urine Random 142 meq/L
[2024-06-12 06:13] LABS: Glucose Point of Care 95 mg/dl (65-105)
--- NOTE | 2024-06-12 07:59 | P.PNCA_ITS ---
Progress Note: A&P Assessment and Plan (1) Symptomatic bradycardia: Code(s): R00.1 - Bradycardia, unspecified Status: Acute Assessment and Plan: She is having intermittent symptomatic junctional rhythm and symptomatic sinus bradycardia in 30-40 bpm range. Monitor on telemetry. Obtain echo. Will see if HCG is available for permanent pacemaker implant tomorrow or day after. If not, we will consider transfer to another facility for it. (2) Hypertension associated with diabetes: Code(s): E11.59 - Type 2 diabetes mellitus with other circulatory complications; I10 - Essential (primary) hypertension Status: Acute Assessment and Plan: Stable. Started Hydralazine 25 mg TID. (3) Hyperlipidemia associated with type 2 diabetes mellitus: Code(s): E11.69 - Type 2 diabetes mellitus with other specified complication; E78.5 - Hyperlipidemia, unspecified Status: Acute Assessment and Plan: On Atorvastatin. Subjective Date/time seen: 06/12/24 07:59 Interval history: Currently while resting in bed, no dizziness. Denies chest pain or sob. Exam Const: General: cooperative, healthy appearing and comfortable Orientation/consciousness: oriented to person, oriented to place and oriented to time Resp: Auscultation: clear to auscultation bilaterally, no crackles, no rales, no rhonchi and no wheezes Cardio: Rate: regular rate Rhythm: regular rhythm Heart sounds: no murmurs Peripheral pulses: dorsalis pedis present Neuro: General: oriented to person, oriented to place and oriented to time Extrem: Right lower extremity: no edema Left lower extremity: no edema Objective Data Vital Signs Vital Signs: Vital Signs - 24 hr 06/11/24 13:39 06/11/24 14:00 06/11/24 14:06 Temperature Pulse Rate 65 61 63 Respiratory Rate 13 16 Blood Pressure 117/70 138/70 Pulse Oximetry 100 99 Oxygen Delivery Room Air 06/11/24 15:20 06/11/24 15:20 06/11/24 15:40 Temperature Pulse Rate 97 62 38 L Respiratory Rate 20 15 Blood Pressure 145/66 H 120/85 Pulse Oximetry 62 L 97 100 Oxygen Delivery 06/11/24 16:00 06/11/24 17:50 06/11/24 18:40 Temperature Pulse Rate 64 62 62 Respiratory Rate 16 16 16 Blood Pressure 140/61 167/88 H 177/83 H Pulse Oximetry 100 99 95 Oxygen Delivery 02/11/25 20:32 06/11/24 20:34 06/11/24 21:45 Temperature 97.8 F 97.4 F L Pulse Rate 49 L 50 L 85 Respiratory Rate 16 16 18 Blood Pressure 91/56 L 106/43 L 136/47 L Pulse Oximetry 94 95 97 Oxygen Delivery 06/11/24 22:54 06/12/24 00:00 06/12/24 04:00 Temperature Pulse Rate 57 L 56 L Respiratory Rate Blood Pressure 110/40 L Pulse Oximetry Oxygen Delivery 06/12/24 06:00 Temperature 97.4 F L Pulse Rate 54 L Respiratory Rate 18 Blood Pressure 163/71 H Pulse Oximetry 97 Oxygen Delivery Meds/Results Medications: Active Medications Generic Name Dose Route Start Last Admin Trade Name Freq PRN Reason Stop Dose Admin Atorvastatin Calcium 10 mg 06/12/24 09:00 Atorvastatin 10 Mg Tablet BY MOUTH DAILY NAMRATA Hydralazine HCl 25 mg 06/11/24 20:20 06/11/24 22:55 Hydralazine Hcl 25 Mg Tablet PO Not Given TID NAMRATA Lactated Ringer's 1,000 mls @ 100 mls/hr 06/12/24 00:35 06/12/24 01:53 Lr - Lactated Ringers Iv IV CONT 100 mls/hr .Q10H NAMRATA Administration Perflutren Lipid Microsphere 0 ml 06/11/24 16:18 Perflutren Lipid Microspheres 1.5 Ml Vial Diluted To 10 Ml Total Volume IV PUSH 06/14/24 16:18 ONCE PRN adequate visualization Protocol Radiology Results: ITS Impressions Chest X-Ray 06/11/24 14:41 IMPRESSION: 1. Nodule left midlung zone suspicious for primary bronchogenic carcinoma. Noncontrast chest CT is recommended. 2. Emphysema. Chest CTA 06/11/24 15:32 IMPRESSION: 1. No pulmonary embolus. 2. Calcified pleural plaque correlating with the chest radiograph abnormality. 3. Mild chronic interstitial lung disease (asbestosis). Labs Labs: Laboratory Results - last 24 hr 06/11/24 06/11/24 06/12/24 13:53 16:26 05:18 WBC 8.1 RBC 4.68 Hgb 13.2 Hct 41.8 MCV 89.3 MCH 28.2 MCHC 31.6 L RDW 15.4 H Plt Count 272 MPV 10.3 Immature Gran % (Auto) 0.4 Neut % (Auto) 81.6 H Lymph % (Auto) 11.2 L [place] % (Auto) 6.3 Eos % (Auto) 0.4 Baso % (Auto) 0.1 L Lymph # (Auto) 0.90 [place] # (Auto) 0.5 Eos # (Auto) 0.0 Baso # (Auto) 0.0 Abs Immat Gran (auto) 0.03 Absolute Neuts (auto) 6.6 Absolute Nucleated RBC 0.000 Nucleated RBC % 0.0 Sodium 141 Potassium 3.7 Chloride 100 Carbon Dioxide 24 Anion Gap 17 H BUN 32 H Creatinine 1.47 H Estim Creat Clear Calc Not Reportable Estimated GFR 34 L Glucose 112 H POC Capillary Glucose Calcium 10.5 H Total Bilirubin 1.6 H AST 28 ALT 21 Alkaline Phosphatase 87 Troponin I 0.043 H* 0.028 D Total Protein 8.0 Albumin 4.5 Urine Color Yellow Urine Appearance Clear Urine pH 5.5 Ur Specific [place] 1.044 H Urine Protein Trace Urine Glucose (UA) 3+ H Urine Ketones Negative Ur Blood (Man) Negative Urine Nitrate Negative Urine Bilirubin Negative Urine Urobilinogen 1.0 Ur Leukocyte Esterase Negative Urine RBC 0-2 Urine WBC 0-5 Ur Squamous Epith Cells None seen Urine Bacteria None seen Urine Casts 0-2 Ur Random Sodium 142 Urine Creatinine 90.5 06/12/24 06:00 WBC RBC Hgb Hct MCV MCH MCHC RDW Plt Count MPV Immature Gran % (Auto) Neut % (Auto) Lymph % (Auto) [place] % (Auto) Eos % (Auto) Baso % (Auto) Lymph # (Auto) [place] # (Auto) Eos # (Auto) Baso # (Auto) Abs Immat Gran (auto) Absolute Neuts (auto) Absolute Nucleated RBC Nucleated RBC % Sodium Potassium Chloride Carbon Dioxide Anion Gap BUN Creatinine Estim Creat Clear Calc Estimated GFR Glucose POC Capillary Glucose 95 Calcium Total Bilirubin AST ALT Alkaline Phosphatase Troponin I Total Protein Albumin Urine Color Urine Appearance Urine pH Ur Specific [place] Urine Protein Urine Glucose (UA) Urine Ketones Ur Blood (Man) Urine Nitrate Urine Bilirubin Urine Urobilinogen Ur Leukocyte Esterase Urine RBC Urine WBC Ur Squamous Epith Cells Urine Bacteria Urine Casts Ur Random Sodium Urine Creatinine
[2024-06-12 08:33] LABS: Basophils Percent Auto 0.3 % (0.2-1.2); Eosinophils Absolute Auto 0.1 K/mm3 (0-0.3); Eosinophils Percent Auto 1.7 % (0-4.4); Hematocrit 37.8 % (37.0-47.0); Hemoglobin 11.9 g/dL (12.0-15.0); Immature Granulocyte Absolute 0.02 K/mm3 (0.00-0.031); Immature Granulocyte Percent A 0.3 % (0-0.5); Lymphocytes Absolute Auto 0.92 K/mm3 (0.9-3.2); Lymphocytes Percent Auto 14.6 % (18.3-44.2); Mean Corpuscular HGB Conc 31.5 g/dl (32-36); Mean Corpuscular Hemoglobin 28.4 pg (26-34); Mean Corpuscular Volume 90.2 fl (80-100); Mean Platelet Volume 10.1 fl (7.4-10.4); Monocytes Absolute Auto 0.4 K/mm3 (0.1-0.6); Neutrophils Absolute Auto 4.8 K/mm3 (1.3-6.7); Neutrophils Percent Auto 76.1 % (45.5-73.1); Platelet Count Result 230 k/mm3 (150-375); Red Blood Count 4.19 M/mm3 (4.2-5.4); Red Cell Distribution Width 15.3 % (11.5-14.5); White Blood Count 6.3 K/mm3 (4.5-10.0)
[2024-06-12 08:55] LABS: Alanine Aminotransferase 16 U/L (6-35); Alkaline Phosphatase 75 U/L (38-126); Anion Gap 7 mmol/L (4-12); Aspartate Amino Transferase 23 U/L (14-36); Bilirubin,Total 1.4 mg/dL (0.2-1.3); Blood Urea Nitrogen 28 mg/dL (7-17); Calcium 9.9 mg/dL (8.4-10.2); Carbon Dioxide 31 mmol/L (22-30); Chloride 100 mmol/L (98-107); Estimated Glomerular Filt Rate 53; Glucose 95 mg/dL (65-110); Potassium 4.2 mmol/L (3.4-5.0); Sodium 138 mmol/L (137-145)
[2024-06-12] MEDS: ATORVASTATIN 10 MG TABLET BY MOUTH (09:26)
[2024-06-12] MEDS: hydrALAZINE HCL 25 MG TABLET PO ×3 (09:26→17:31)
[2024-06-12 11:18] LABS: Prothrombin Time 13.7 Seconds (11.1-14.7)
--- NOTE | 2024-06-12 11:41 | P.CONCA_ITS ---
Assessment and Plan Assessment and plan (1) Symptomatic bradycardia: Code(s): R00.1 - Bradycardia, unspecified Status: Acute Plan 88-year-old lady with symptomatic bradycardia, sinus node dysfunction and there QRS junctional escape rhythm about she is symptomatic. Will arrange for implantation of permanent dual-chamber pacemaker tomorrow morning. She understands the procedure the son the risks. Thank you for this consultation Deon Pinon MD History of Present Illness History of Present Illness Consult date/time: 06/12/24 11:41 Reason For Visit: bradyarrhythmia Narrative: This is an 88-year-old lady I am seeing at the request of Dr. Nj to consider implanting a permanent pacemaker device. The patient is unknown to me prior to this consult. She recently has been seen in consultation because of cardia. She appears to have evidence of syndrome symptomatic bradycardia with a 2 narrow QRS junctional escape rhythm in the 30s. Is not taking any medication that would affect her AV or SA node. She came to the hospital yesterday emergency room when she was having symptoms of lightheadedness, near-syncope and was in the process of moving from her home to another [facility] and was supervising the movers. She did not and has not had a rose syncopal episode. She does not have any additional cardiac history at this time. Because of the symptomatic bradycardia which appears to be sinus node dysfunction pacemaker implantation has been recommended. Discussed the procedure details as well as risks with the patient she is agreeable and wishes to proceed. [facility] Past Medical History Medical History Need for vaccination with 13-polyvalent pneumococcal conjugate vaccine Hypertension associated with diabetes Hyperlipidemia associated with type 2 diabetes mellitus Type 2 diabetes mellitus Surgical History Surgical History H/O cataract extraction left eye H/O cataract extraction right eye H/O bilateral oophorectomy Hx of hysterectomy Hx of cholecystectomy Family History Family History Mother , Age 81 CHF (congestive heart failure) Social History Social History Smoking packs per day: 0.5 Smoking cigarettes per day: 10.0 Years smoked: 10 Smoking pack-years: 5.00 Smoking status: Former smoker Tobacco type: cigarettes Alcohol intake: former Drinks per week: 1 Alcohol use details: social Substance use: never Substance use type: does not use Do You Feel Safe in your Home?: Yes Lack of Transportation: No Lack of Food: Never True Current Housing: I Have Housing Concerned About Future Housing: No Difficulty Paying Gas/Electric Bills: No Difficulty Paying for Meds: No Currently Unemployed: No Education: High School Diploma/GED Difficulty w/ Childcare or Family Care: No Living arrangements: with family Additional living arrangements comments: , has 4 children Occupation/Education: retired 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[employer] Gender identity (if verbalized by the patient): Female Spiritual care concerns: No Meds Home Medications and Allergies Home Medications ?Medication ?Instructions ?Recorded ?Confirmed ?Type aspirin 81 mg tablet,delayed See Rx Instructions .Route 08/03/23 06/11/24 Rx release .COMPLEX #90 tabs atorvastatin 10 mg tablet See Rx Instructions .Route 02/02/24 06/11/24 Rx .COMPLEX #90 tabs empagliflozin 10 mg tablet 10 mg PO DAILY #90 tabs 05/22/24 06/11/24 Rx (Jardiance) hydrochlorothiazide 12.5 mg capsule See Rx Instructions .Route 06/11/24 06/11/24 Rx .COMPLEX #90 caps lisinopril 10 mg tablet 10 mg PO DAILY HTN 06/11/24 06/11/24 History Allergies Allergy/AdvReac Type Severity Reaction Status Date / Time azithromycin (Zithromax Allergy Intermediate rash Verified 06/11/24 22:14 Z-Shahab) Penicillins Allergy Intermediate rash Verified 06/11/24 22:14 Vital Signs Vital Signs - 24 hr 06/11/24 13:39 06/11/24 14:00 06/11/24 14:06 Temperature Pulse Rate 65 61 63 Respiratory Rate 13 16 Blood Pressure 117/70 138/70 Pulse Oximetry 100 99 Oxygen Delivery Room Air 06/11/24 15:20 06/11/24 15:20 06/11/24 15:40 Temperature Pulse Rate 97 62 38 L Respiratory Rate 20 15 Blood Pressure 145/66 H 120/85 Pulse Oximetry 62 L 97 100 Oxygen Delivery 06/11/24 16:00 06/11/24 17:50 06/11/24 18:40 Temperature Pulse Rate 64 62 62 Respiratory Rate 16 16 16 Blood Pressure 140/61 167/88 H 177/83 H Pulse Oximetry 100 99 95 Oxygen Delivery 06/11/24 20:32 06/11/24 20:34 06/11/24 21:45 Temperature 36.6 C 36.3 C L Pulse Rate 49 L 50 L 85 Respiratory Rate 16 16 18 Blood Pressure 91/56 L 106/43 L 136/47 L Pulse Oximetry 94 95 97 Oxygen Delivery 06/11/24 22:54 06/12/24 00:00 06/12/24 04:00 Temperature Pulse Rate 57 L 56 L Respiratory Rate Blood Pressure 110/40 L Pulse Oximetry Oxygen Delivery 06/12/24 06:00 06/12/24 08:00 Temperature 36.3 C L Pulse Rate 54 L 58 L Respiratory Rate 18 Blood Pressure 163/71 H Pulse Oximetry 97 Oxygen Delivery Exam 2 Const: Other: Well-developed well-nourished number than her stated age no sub any kind HENMT: Mouth: Yes moist mucous membranes Eyes: Sclera: sclerae normal Neck: Neck: supple and no JVD Resp: Effort & Inspection: normal respiratory effort Auscultation: clear to auscultation bilaterally Cardio: Rate: regular rate Rhythm: regular rhythm Other: No audible murmur or gallop GI: GI Palp: Yes Soft to palpation Auscultation: normal bowel sounds Skin: General skin exam: normal color Neuro: Other: Alert and oriented x3 Extrem: General: normal to inspection Results Labs and Meds 06/12/24 07:53 06/12/24 07:53 Lab results: Cardiac Enzymes 06/11/24 06/11/24 06/12/24 Range/Units 13:53 16:26 07:53 AST 28 23 (14-36) U/L Troponin I 0.043 H* 0.028 D (0.000-0.034) ng/mL Coagulation 06/12/24 Range/Units 10:50 PT 13.7 (11.1-14.7) Seconds CBC 06/11/24 06/12/24 Range/Units 13:53 07:53 WBC 8.1 6.3 (4.5-10.0) K/mm3 RBC 4.68 4.19 L (4.2-5.4) M/mm3 Hgb 13.2 11.9 L (12.0-15.0) g/dL Hct 41.8 37.8 (37.0-47.0) % Plt Count 272 230 (150-375) k/mm3 Lymph # (Auto) 0.90 0.92 (0.9-3.2) K/mm3 [place] # (Auto) 0.5 0.4 (0.1-0.6) K/mm3 Eos # (Auto) 0.0 0.1 (0-0.3) K/mm3 Baso # (Auto) 0.0 0.0 (0.0-0.1) K/mm3 Comprehensive Metabolic Panel 06/11/24 06/12/24 Range/Units 13:53 07:53 Sodium 141 138 (137-145) mmol/L Potassium 3.7 4.2 (3.4-5.0) mmol/L Chloride 100 100 (98-107) mmol/L Carbon Dioxide 24 31 H (22-30) mmol/L BUN 32 H 28 H (7-17) mg/dL Creatinine 1.47 H 0.99 (0.7-1.0) mg/dL Glucose 112 H 95 (65-110) mg/dL Calcium 10.5 H 9.9 (8.4-10.2) mg/dL AST 28 23 (14-36) U/L ALT 21 16 (6-35) U/L Alkaline Phosphatase 87 75 (38-126) U/L Total Protein 8.0 7.0 (6.3-8.2) g/dL Albumin 4.5 4.0 (3.5-5.1) g/dL Intake and Output 06/11/24 06/12/24 06/12/24 23:59 07:59 15:59 Other: # Unmeasured Voids 2
[2024-06-12 12:01] LABS: Glucose Point of Care 92 mg/dl (65-105)
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
[2024-06-13] VITALS (18 sets, daily range): BP systolic 93–185; BP diastolic 47–122; PULSE 54–73; RESP 14–18; TEMP 35.9–36.9; O2SAT 95–100
[2024-06-13 01:24] LABS: Glucose Point of Care 101 mg/dl (65-105)
[2024-06-13] MEDS: LACTATED RINGERS 1,000 ML 100 ML IV CONT ×3 (05:55→22:54)
[2024-06-13 06:46] LABS: Glucose Point of Care 94 mg/dl (65-105)
--- NOTE | 2024-06-13 07:00 | WPDMODSED ---
Moderate Sedation Note-Pt Data Patient Data Diagnosis: Sick sinus syndrome with symptomatic bradycardia/junctional rhythm Present Complaint: No complaints Procedure to be performed/Plan: Pacemaker implant Allergies Allergy/AdvReac Type Severity Reaction Status Date / Time azithromycin (Zithromax Allergy Intermediate rash Verified 06/11/24 22:14 Z-Shahab) Penicillins Allergy Intermediate rash Verified 06/11/24 22:14 Home Medications ?Medication ?Instructions ?Recorded ?Confirmed ?Type aspirin 81 mg tablet,delayed See Rx Instructions .Route 08/03/23 06/11/24 Rx release .COMPLEX #90 tabs atorvastatin 10 mg tablet See Rx Instructions .Route 02/02/24 06/11/24 Rx .COMPLEX #90 tabs empagliflozin 10 mg tablet 10 mg PO DAILY #90 tabs 05/22/24 06/11/24 Rx (Jardiance) hydrochlorothiazide 12.5 mg capsule See Rx Instructions .Route 06/11/24 06/11/24 Rx .COMPLEX #90 caps lisinopril 10 mg tablet 10 mg PO DAILY HTN 06/11/24 06/11/24 History Current Medications: Active Medications Atorvastatin Calcium (Atorvastatin 10 Mg Tablet) 10 mg BY MOUTH DAILY [facility] Last Admin: 06/12/24 09:26 Dose: 10 mg Hydralazine HCl (Hydralazine Hcl 25 Mg Tablet) 25 mg PO TID [facility] Last Admin: 06/12/24 17:31 Dose: 25 mg Lactated Ringer's (Lr - Lactated Ringers Iv) 1,000 mls @ 100 mls/hr IV CONT .Q10H [facility] Last Admin: 06/13/24 05:55 Dose: 100 mls/hr Perflutren Lipid Microsphere (Perflutren Lipid Microspheres 1.5 Ml Vial Diluted To 10 Ml Total Volume) 0 ml IV PUSH ONCE PRN; Protocol PRN Reason: adequate visualization Stop: 06/14/24 16:18 Sedation/Anesthesia: No previous sedation/anesthesia problems (including family history). [facility] Past Medical History Medical History Need for vaccination with 13-polyvalent pneumococcal conjugate vaccine Hypertension associated with diabetes Hyperlipidemia associated with type 2 diabetes mellitus Type 2 diabetes mellitus Surgical History Surgical History H/O cataract extraction left eye H/O cataract extraction right eye H/O bilateral oophorectomy Hx of hysterectomy Hx of cholecystectomy Family History Family History Mother , Age 81 CHF (congestive heart failure) Social History Social History Smoking packs per day: 0.5 Smoking cigarettes per day: 10.0 Years smoked: 10 Smoking pack-years: 5.00 Smoking status: Former smoker Tobacco type: cigarettes Alcohol intake: former Drinks per week: 1 Alcohol use details: social Substance use: never Substance use type: does not use Do You Feel Safe in your Home?: Yes Lack of Transportation: No Lack of Food: Never True Current Housing: I Have Housing Concerned About Future Housing: No Difficulty Paying Gas/Electric Bills: No Difficulty Paying for Meds: No Currently Unemployed: No Education: High School Diploma/GED Difficulty w/ Childcare or Family Care: No Living arrangements: with family Additional living arrangements comments: , has 4 children Occupation/Education: retired 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 [employer] Gender identity (if verbalized by the patient): Female Spiritual care concerns: No Mod Sed Physical Exam Physical Exam Pre Procedural Exam: Normal: Appearance (Pleasant elderly lady no distress), Throat, Airway, Lungs, Heart Size, Heart Rate, Heart Rhythm, Neuro Exam and Extremities Hours since solid foods: 12 Hours since liquid intake: 12 Mallampati Classification: class II Internal Medicine - PN: Obj Da Vital Signs Vital Signs: Vital Signs - 24 hr 06/12/24 08:00 06/12/24 09:30 06/12/24 12:00 Temperature Pulse Rate 58 L 59 L Respiratory Rate Blood Pressure Pulse Oximetry Oxygen Delivery Room Air 06/12/24 14:00 06/12/24 16:00 06/12/24 20:00 Temperature 36.6 C Pulse Rate 98 64 68 Respiratory Rate 18 Blood Pressure 126/46 L Pulse Oximetry 97 Oxygen Delivery 06/12/24 20:47 06/13/24 00:00 06/13/24 04:00 Temperature 37.5 C Pulse Rate 61 57 L 54 L Respiratory Rate 16 Blood Pressure 145/60 H Pulse Oximetry 94 Oxygen Delivery Intake/Output Intake/Output: Intake & Output 02/10/06/11/24 06/12/24 06/13/24 23:59 23:59 23:59 23:59 Intake Total 1480 890 Balance 1480 890 Meds/Results Medications: Active Medications Generic Name Dose Route Start Last Admin Trade Name Freq PRN Reason Stop Dose Admin Atorvastatin Calcium 10 mg 06/12/24 09:00 06/12/24 09:26 Atorvastatin 10 Mg Tablet BY MOUTH 10 mg DAILY NAMRATA Administration Hydralazine HCl 25 mg 06/11/24 20:20 06/12/24 17:31 Hydralazine Hcl 25 Mg Tablet PO 25 mg TID NAMRATA Administration Lactated Ringer's 1,000 mls @ 100 mls/hr 06/12/24 00:35 06/13/24 05:55 Lr - Lactated Ringers Iv IV CONT 100 mls/hr .Q10H NAMRATA Administration Perflutren Lipid Microsphere 0 ml 06/11/24 16:18 Perflutren Lipid Microspheres 1.5 Ml Vial Diluted To 10 Ml Total Volume IV PUSH 06/14/24 16:18 ONCE PRN adequate visualization Protocol Radiology Results: ITS Impressions Chest X-Ray 06/11/24 14:41 IMPRESSION: 1. Nodule left midlung zone suspicious for primary bronchogenic carcinoma. Noncontrast chest CT is recommended. 2. Emphysema. Chest CTA 06/11/24 15:32 IMPRESSION: 1. No pulmonary embolus. 2. Calcified pleural plaque correlating with the chest radiograph abnormality. 3. Mild chronic interstitial lung disease (asbestosis). Labs 06/12/24 07:53 06/12/24 07:53 Labs: Laboratory Results - last 24 hr 06/12/24 06/12/24 06/12/24 07:53 10:50 11:54 WBC 6.3 RBC 4.19 L Hgb 11.9 L Hct 37.8 MCV 90.2 MCH 28.4 MCHC 31.5 L RDW 15.3 H Plt Count 230 MPV 10.1 Immature Gran % (Auto) 0.3 Neut % (Auto) 76.1 H Lymph % (Auto) 14.6 L [place] % (Auto) 7.0 Eos % (Auto) 1.7 Baso % (Auto) 0.3 Lymph # (Auto) 0.92 [place] # (Auto) 0.4 Eos # (Auto) 0.1 Baso # (Auto) 0.0 Abs Immat Gran (auto) 0.02 Absolute Neuts (auto) 4.8 Absolute Nucleated RBC 0.000 Nucleated RBC % 0.0 PT 13.7 INR 1.0 Sodium 138 Potassium 4.2 Chloride 100 Carbon Dioxide 31 H Anion Gap 7 BUN 28 H Creatinine 0.99 Estim Creat Clear Calc Not Reportable Estimated GFR 53 L Glucose 95 POC Capillary Glucose 92 Calcium 9.9 Total Bilirubin 1.4 H AST 23 ALT 16 Alkaline Phosphatase 75 Total Protein 7.0 Albumin 4.0 06/13/24 06/13/24 01:22 05:42 WBC RBC Hgb Hct MCV MCH MCHC RDW Plt Count MPV Immature Gran % (Auto) Neut % (Auto) Lymph % (Auto) [place] % (Auto) Eos % (Auto) Baso % (Auto) Lymph # (Auto) [place] # (Auto) Eos # (Auto) Baso # (Auto) Abs Immat Gran (auto) Absolute Neuts (auto) Absolute Nucleated RBC Nucleated RBC % PT INR Sodium Potassium Chloride Carbon Dioxide Anion Gap BUN Creatinine Estim Creat Clear Calc Estimated GFR Glucose POC Capillary Glucose 101 94 Calcium Total Bilirubin AST ALT Alkaline Phosphatase Total Protein Albumin ASA Classification/Sedation ASA Classification/Sedation ASA Class: III Emergent: No Risks: Risks, benefits and alternatives explained and patient/family accepted plan for sedation. Patient re-evaluated immediately prior to sedation.
--- NOTE | 2024-06-13 07:04 | PC.NURSE ---
To Cardiac Rail Operations Controller for Pacemaker placement.
--- NOTE | 2024-06-13 08:42 | ECG_ITS ---
Test Date: 2024-06-13 09:02:56 Measurements Intervals [place] Rate: 61 P: 111 WV: 278 QRS: -26 QRSD: 86 T: 71 QT: 416 QTc: 419 Interpretive Statements ELECTRONIC ATRIAL PACEMAKER BORDERLINE ST-T WAVE ABNORMALITY- HIGH LATERAL LEADS BASELINE ARTIFACT- I, II, III, AVR BORDERLINE ECG Compared to ECG 06/11/2024 17:00:04 ATRIAL PACEMAKER NOW PRESENT Electronically Signed On 06-13-2024 10:09:23 [employer] WHE[employer] SCREW HOLE by Frederic Nj D.O.
--- NOTE | 2024-06-13 08:44 | P.PCNCC_ITS ---
Cardiac Cath Procedure Note Date of procedure:: 06/13/24 Performing physician:: Deon Pinon MD Indication:: Sick sinus syndrome Brief clinical history:: This is an 88-year-old woman who has been experiencing presyncopal episodes. It has been found to have evidence of sick sinus syndrome with a junctional escape rhythm, heart rate in the 30s. In this situation a permanent pacemaker implant has been recommended. Procedure Procedure performed:: Implantation of permanent dual-chamber pacemaker Sedation/Medication given:: Fentanyl 50 mg Versed 2 mg Case start time 741 Case end time 8:39 a.m. Sedation provided by Jeremy Beth RN, trained observer Access site:: Left subclavian vein Estimated blood loss:: Minimal Procedure note:: Patient was brought to the cardiac catheterization lab in the postabsorptive state where the left anterior chest wall was prepped and draped in the usual fashion. Anesthesia was provided with 20 cc of lidocaine infiltrated locally. Following this an incision was made about 1 in below the clavicle from the midclavicular line to the deltopectoral groove. Sharp and blunt dissection was used to separate the subcutaneous tissue and blunt dissection was used to create a pacemaker pocket inferior to the incision. Electrocautery was used to provide cutaneous hemostasis. Following this the pocket was packed with an antibiotic soaked 4 x 4. Attention was then turned venous access. Using 2 separate SafeSheath kits the subclavian vein was punctured twice and 6 Armenian safe sheaths were used to place the pacemaker leads described below into the venous circulation to the level of the right atrium. The sheaths were peeled away. Attention was turned to positioning the ventricular lead. The straight stylet was removed and a 3 cc syringe was used to form AJ tipped curved which was used to steer the lead through the right ventricle out to the pulmonary artery position. It was then withdrawn using a straight stylet placed into the apex of the right ventricle. The fixation screw was deployed appropriate pacing and sensing performance was demonstrated using the analyzer. The 10 volt sti mulation no evidence of extracardiac stimulation. Attention was then turned to a positioning the atrial lead. The straight stylet was removed and a preformed atrial J stylet was used to position the lead into the right atrial appendage. Obtaining good fixation of the lead in the right ear atrial appendage was challenging. The lead was repositioned twice ultimately with very good fixation and good pacing and sensing performance. Once again at 10 volts stimulus showed no evidence of extracardiac stimulation. Following this the suture sleeves were used to secure the leads to the base the pocket using 2-0 silk ties. The retained sponge was removed from the pocket which was then irrigated with antibiotic infused saline. Following this the pacemaker generator was connected to the leads using the torque wrench and the entire assembly was placed into the newly created pocket. This was then closed in layers using 3-0 Vicryl in an interrupted fashion for the subcutaneous tissue and 4-0 Vicryl in a running subcuticular fashion for the skin. The wound was dressed with an Aquacel dressing the left arm was placed in an immobilizer. Bed rest postop antibiotics EKG and chest x-ray were ordered. Procedure was well tolerated and uncomplicated. Findings:: Patient received a Biotronik dual-chamber pacemaker model Amvia Edge [id number]. Serial number [id number]. Device is programmed in the DDD/CLS mode lower rate limit 60 upper rate limit 120. The atrial lead is a Biotronik bipolar screw-in lead model Solia [id number]. Serial number [id number]. P-waves are sensed at 3.5 mV threshold is 1.1 volts at 0.4 milliseconds impedance 605 Ohms. Ventricular lead is a Biotronik bipolar lead model Solia S [id number]. Serial number [id number]. R-waves are sensed at 8.5 mV threshold 0.6 volts at 0.4 milliseconds impedance 566 Ohms. Conclusion:: 1. Successful uncomplicated implantation permanent Biotronik dual-chamber pacing system for treatment symptomatic bradycardia with sick sinus syndrome and slow junctional escape rhythm in this 88-year-old lady Deon Pinon MD [facility]
[2024-06-13] MEDS: hydrALAZINE HCL 25 MG TABLET PO ×3 (09:45→17:26)
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
--- NOTE | 2024-06-13 10:30 | PC.NURSE ---
Returned to room per hospital bed from Test Technician. Family at bedside.
[2024-06-13] MEDS: ATORVASTATIN 10 MG TABLET BY MOUTH (10:41)
--- NOTE | 2024-06-13 12:21 | PM.PNCARD ---
Progress Note: A&P Assessment and Plan (1) Symptomatic bradycardia: Code(s): R00.1 - Bradycardia, unspecified Status: Acute Assessment and Plan: She is having intermittent symptomatic junctional rhythm and symptomatic sinus bradycardia in 30-40 bpm range. S/P Biotronik dual chamber pacemaker by Dr. Pinon today. Upon discharge patient will f/u with Dr. Pinon in 1 week for a wound check. Then, can f/u with me in 1 month. (2) Hypertension associated with diabetes: Code(s): E11.59 - Type 2 diabetes mellitus with other circulatory complications; I10 - Essential (primary) hypertension Status: Acute Assessment and Plan: Stable. (3) Hyperlipidemia associated with type 2 diabetes mellitus: Code(s): E11.69 - Type 2 diabetes mellitus with other specified complication; E78.5 - Hyperlipidemia, unspecified Status: Acute Assessment and Plan: On Atorvastatin. Subjective Date/time seen: 06/13/24 12:21 Interval history: Denies chest pain, sob, dizziness now. Left chest with pacemaker without discomfort. Exam Const: General: cooperative, healthy appearing and comfortable Orientation/consciousness: oriented to person, oriented to place and oriented to time Resp: Auscultation: clear to auscultation bilaterally, no crackles, no rales, no rhonchi and no wheezes Cardio: Rate: regular rate Rhythm: regular rhythm Heart sounds: no murmurs Peripheral pulses: dorsalis pedis present Neuro: General: oriented to person, oriented to place and oriented to time Extrem: Right lower extremity: no edema Left lower extremity: no edema Objective Data Vital Signs Vital Signs: Vital Signs - 24 hr 06/12/24 14:00 06/12/24 16:00 06/12/24 20:00 Temperature 97.9 F Pulse Rate 98 64 68 Respiratory Rate 18 Blood Pressure 126/46 L Pulse Oximetry 97 Oxygen Delivery 06/12/24 20:47 06/13/24 00:00 06/13/24 04:00 Temperature 99.5 F Pulse Rate 61 57 L 54 L Respiratory Rate 16 Blood Pressure 145/60 H Pulse Oximetry 94 Oxygen Delivery 06/13/24 05:40 06/13/24 09:24 06/13/24 09:45 Temperature 97.9 F 97.9 F Pulse Rate 60 60 60 Respiratory Rate 16 14 15 Blood Pressure 185/76 H 171/107 H 137/101 H Pulse Oximetry 95 99 99 Oxygen Delivery Room Air Room Air 06/13/24 10:00 06/13/24 10:15 06/13/24 10:30 Temperature Pulse Rate 60 60 Respiratory Rate 15 15 Blood Pressure 151/122 H 153/77 H Pulse Oximetry 99 98 Oxygen Delivery Room Air Room Air Room Air 06/13/24 10:35 06/13/24 10:45 06/13/24 10:50 Temperature 96.9 F L 96.7 F L Pulse Rate 59 L 61 61 Respiratory Rate 16 16 Blood Pressure 142/47 H 142/65 H Pulse Oximetry 100 100 Oxygen Delivery 06/13/24 11:20 Temperature 96.8 F L Pulse Rate 61 Respiratory Rate 16 Blood Pressure 126/52 L Pulse Oximetry 100 Oxygen Delivery Intake/Output Intake/Output: Intake & Output 06/10/24 06/11/24 06/12/24 06/13/24 23:59 23:59 23:59 23:59 Intake Total 1480 1400 Balance 1480 1400 Meds/Results Medications: Active Medications Generic Name Dose Route Start Last Admin Trade Name Freq PRN Reason Stop Dose Admin Atorvastatin Calcium 10 mg 06/12/24 09:00 06/13/24 10:41 Atorvastatin 10 Mg Tablet BY MOUTH 10 mg DAILY NAMRATA Administration Hydralazine HCl 25 mg 06/11/24 20:20 06/13/24 09:45 Hydralazine Hcl 25 Mg Tablet PO 25 mg TID NAMRATA Administration Lactated Ringer's 1,000 mls @ 100 mls/hr 06/12/24 00:35 06/13/24 05:55 Lr - Lactated Ringers Iv IV CONT 100 mls/hr .Q10H NAMRATA Administration Sodium Chloride 1,000 mls @ 50 mls/hr 06/13/24 08:45 Normal Saline Iv IV CONT 06/13/24 16:44 .Q20H NAMRATA Vancomycin HCl 1,000 mg in 250 mls @ 250 mls/hr 06/13/24 18:00 Vancomycin 1,000 Mg/Ns 250 Ml IVPB 06/13/24 18:59 ONCE ONE Perflutren Lipid Microsphere 0 ml 06/11/24 16:18 Perflutren Lipid Microspheres 1.5 Ml Vial Diluted To 10 Ml Total Volume IV PUSH 06/14/24 16:18 ONCE PRN adequate visualization Protocol Radiology Results: ITS Impressions Chest CTA 06/11/24 15:32 IMPRESSION: 1. No pulmonary embolus. 2. Calcified pleural plaque correlating with the chest radiograph abnormality. 3. Mild chronic interstitial lung disease (asbestosis). Chest X-Ray 06/13/24 09:21 Impression: Status post interval pacemaker placement. No pneumothorax. Stable calcified pulmonary granulomas. Labs Labs: Laboratory Results - last 24 hr 06/13/24 06/13/24 01:22 05:42 POC Capillary Glucose 101 94
[2024-06-13 12:23] LABS: Glucose Point of Care 177 mg/dl (65-105)
[2024-06-13] MEDS: VANCOMYCIN 1,000 MG/NS 250 ML 1,000 MG/250 ML BAG 250 MG IVPB (17:21)
[2024-06-13 18:23] LABS: Glucose Point of Care 108 mg/dl (65-105)
[2024-06-13 23:08] LABS: Glucose Point of Care 100 mg/dl (65-105)
[2024-06-14] VITALS (8 sets, daily range): BP systolic 164–190; BP diastolic 69–88; PULSE 63–75; RESP 18; TEMP 36.5–36.7; O2SAT 95–98
[2024-06-14] MEDS: hydrALAZINE HCL 25 MG TABLET PO ×2 (01:11→12:22)
[2024-06-14] MEDS: LACTATED RINGERS 1,000 ML 100 ML IV CONT (06:21)
[2024-06-14 07:52] LABS: Glucose Point of Care 107 mg/dl (65-105)
--- NOTE | 2024-06-14 08:03 | PM.PNCARD ---
Progress Note: A&P Assessment and Plan (1) Symptomatic bradycardia: Code(s): R00.1 - Bradycardia, unspecified Status: Acute Assessment and Plan: She was having intermittent symptomatic junctional rhythm and symptomatic sinus bradycardia in 30-40 bpm range. S/P Biotronik dual chamber pacemaker by Dr. Pinon on 06/13/24. Upon discharge patient will f/u with Dr. Pinon in 1 week for a wound check. Then, can f/u with me in 1 month. (2) Hypertension associated with diabetes: Code(s): E11.59 - Type 2 diabetes mellitus with other circulatory complications; I10 - Essential (primary) hypertension Status: Acute Assessment and Plan: Fluctuates. Resume Lisinopril 10 mg daily. On Hydralazine 25 mg TID. (3) Hyperlipidemia associated with type 2 diabetes mellitus: Code(s): E11.69 - Type 2 diabetes mellitus with other specified complication; E78.5 - Hyperlipidemia, unspecified Status: Acute Assessment and Plan: On Atorvastatin. Subjective Date/time seen: 06/14/24 08:03 Interval history: Denies chest pain, sob, dizziness now. Left chest with pacemaker without discomfort. Exam Const: General: cooperative, healthy appearing and comfortable Orientation/consciousness: oriented to person, oriented to place and oriented to time Resp: Auscultation: clear to auscultation bilaterally, no crackles, no rales, no rhonchi and no wheezes Cardio: Rate: regular rate Rhythm: regular rhythm Heart sounds: no murmurs Peripheral pulses: dorsalis pedis present Neuro: General: oriented to person, oriented to place and oriented to time Extrem: Right lower extremity: no edema Left lower extremity: no edema Objective Data Vital Signs Vital Signs: Vital Signs - 24 hr 06/13/24 09:24 06/13/24 09:45 06/13/24 10:00 Temperature 97.9 F Pulse Rate 60 60 60 Respiratory Rate 14 15 15 Blood Pressure 171/107 H 137/101 H 151/122 H Pulse Oximetry 99 99 99 Oxygen Delivery Room Air Room Air Room Air 06/13/24 10:15 06/13/24 10:30 06/13/24 10:35 Temperature 96.9 F L Pulse Rate 60 59 L Respiratory Rate 15 16 Blood Pressure 153/77 H 142/47 H Pulse Oximetry 98 100 Oxygen Delivery Room Air Room Air 06/13/24 10:45 06/13/24 10:50 06/13/24 11:20 Temperature 96.7 F L 96.8 F L Pulse Rate 61 61 61 Respiratory Rate 16 16 Blood Pressure 142/65 H 126/52 L Pulse Oximetry 100 100 Oxygen Delivery 06/13/24 12:24 06/13/24 14:04 06/13/24 14:33 Temperature 96.6 F L 97.0 F L Pulse Rate 73 61 64 Respiratory Rate 16 18 Blood Pressure 93/74 L 124/62 Pulse Oximetry 100 99 Oxygen Delivery 06/13/24 16:00 06/13/24 18:27 06/13/24 20:06 Temperature 98.5 F 98.1 F Pulse Rate 60 63 67 Respiratory Rate 16 16 Blood Pressure 129/56 L 151/64 H Pulse Oximetry 98 Oxygen Delivery 06/13/24 20:25 06/14/24 00:02 06/14/24 01:06 Temperature Pulse Rate 66 63 Respiratory Rate Blood Pressure 190/82 H Pulse Oximetry Oxygen Delivery 06/14/24 01:06 06/14/24 02:10 06/14/24 04:00 Temperature 98.1 F Pulse Rate 65 65 Respiratory Rate 18 Blood Pressure 190/82 H 166/69 H Pulse Oximetry 95 Oxygen Delivery 06/14/24 06:29 06/14/24 07:50 Temperature 97.9 F Pulse Rate 75 Respiratory Rate 18 Blood Pressure 164/88 H Pulse Oximetry 98 Oxygen Delivery Room Air Intake/Output Intake/Output: Intake & Output 06/11/24 06/12/24 06/13/24 06/14/24 23:59 23:59 23:59 23:59 Intake Total 1480 3898.3 995.0 Balance 1480 3898.3 995.0 Meds/Results Medications: Active Medications Generic Name Dose Route Start Last Admin Trade Name Freq PRN Reason Stop Dose Admin Atorvastatin Calcium 10 mg 06/12/24 09:00 06/13/24 10:41 Atorvastatin 10 Mg Tablet BY MOUTH 10 mg DAILY NAMRATA Administration Hydralazine HCl 25 mg 06/11/24 20:20 06/14/24 01:11 Hydralazine Hcl 25 Mg Tablet PO 25 mg TID NAMRATA Administration Lactated Ringer's 1,000 mls @ 100 mls/hr 06/12/24 00:35 06/14/24 06:21 Lr - Lactated Ringers Iv IV CONT 100 mls/hr .Q10H NAMRATA Administration Perflutren Lipid Microsphere 0 ml 06/11/24 16:18 Perflutren Lipid Microspheres 1.5 Ml Vial Diluted To 10 Ml Total Volume IV PUSH 06/14/24 16:18 ONCE PRN adequate visualization Protocol Radiology Results: ITS Impressions Chest CTA 06/11/24 15:32 IMPRESSION: 1. No pulmonary embolus. 2. Calcified pleural plaque correlating with the chest radiograph abnormality. 3. Mild chronic interstitial lung disease (asbestosis). Chest X-Ray 06/13/24 09:21 Impression: Status post interval pacemaker placement. No pneumothorax. Stable calcified pulmonary granulomas. Labs Labs: Laboratory Results - last 24 hr 06/13/24 06/13/24 06/13/24 12:07 18:12 20:18 POC Capillary Glucose 177 H 108 H 100 06/14/24 07:39 POC Capillary Glucose 107 H
[2024-06-14] MEDS: ATORVASTATIN 10 MG TABLET BY MOUTH (09:05)
[2024-06-14] MEDS: lisinopriL 10 MG TABLET PO (09:05)
[2024-06-14 11:38] LABS: Glucose Point of Care 117 mg/dl (65-105)
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
== END 2024-06-14 14:58 | disposition home or self-care (01) | DRG 244 ==
LOC: ANHED 17:05 → ANH3MEDSUR 17:31
PROVIDERS: General Practice; Specialist; Admitting Provider Internal Medicine; Emergency Provider Emergency Medicine; PCP Family Medicine; Visit Provider Nurse Practitioner
PROC: 0JH606Z Insertion of Pacemaker, Dual Chamber into Chest Subcutaneous Tissue and Fascia, Open Approach (ICD-10-PCS; CPT 33208; principal; 2024-06-13 07:30)
DX: R00.1 Bradycardia, unspecified (principal); I49.5 Sick sinus syndrome; I10 Essential (primary) hypertension; E11.9 Type 2 diabetes mellitus without complications; E78.5 Hyperlipidemia, unspecified; Z87.891 Personal history of nicotine dependence; Z79.82 Long term (current) use of aspirin; S06.5XAD Traumatic subdural hemorrhage with loss of consciousness status unknown, subsequent encounter; S06.6XAD Traumatic subarachnoid hemorrhage with loss of consciousness status unknown, subsequent encounter
CPT/HCPCS: 33208; 36415; 71045; 71046; 71275; 80053; 81001; 82570; 82948; 84300; 84484; 85025; 85610; 93005; 93242; 93306; 96360; 96361; 96374; 99285; A9270; C1779; C1785; G0378; J2003; J2250; J3010; J3370; J7040; J7120; Q9967

== ENCOUNTER 2024-10-30 07:28 | Outpatient (CLI) | payer MEDICARE, SELFPAY ==
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
[2024-10-30 08:02] LABS: Hemoglobin A1C. 5.2 % (<5.7)
[2024-10-30 08:08] LABS: Alanine Aminotransferase 19 U/L (6-35); Albumin Level 4.3 g/dL (3.5-5.1); Alkaline Phosphatase 101 U/L (38-126); Anion Gap 7 mmol/L (4-12); Aspartate Amino Transferase 26 U/L (14-36); Bilirubin,Total 0.8 mg/dL (0.2-1.3); Blood Urea Nitrogen 31 mg/dL (7-17); Calcium 9.8 mg/dL (8.4-10.2); Carbon Dioxide 26 mmol/L (22-30); Chloride 106 mmol/L (98-107); Cholesterol 168 mg/dL (0-200); Estimated Glomerular Filt Rate 37; Glucose 116 mg/dL (65-110); HDL Direct 76 mg/dL; Osmolality Calculated 295 mOsm/kg (285-295); Potassium 4.5 mmol/L (3.4-5.0); Sodium 139 mmol/L (137-145); Total Protein 7.1 g/dL (6.3-8.2); Triglycerides 89 mg/dL (<150)
== END 2024-10-30 07:29 | disposition home or self-care (01) ==
LOC: CHSLAB 07:30
PROVIDERS: PCP Family Medicine; Visit Provider Internal Medicine Cardiovascular Disease
DX: E78.5 Hyperlipidemia, unspecified (principal); E11.69 Type 2 diabetes mellitus with other specified complication
CPT/HCPCS: 36415; 80053; 80061; 83036

== ENCOUNTER 2025-03-17 09:09 | Outpatient (CLI) | payer MEDICARE, SELFPAY ==
[2025-03-17 09:37] LABS: Alanine Aminotransferase 20 U/L (6-35); Albumin Level 4.8 g/dL (3.5-5.1); Alkaline Phosphatase 95 U/L (38-126); Anion Gap 11 mmol/L (4-12); Aspartate Amino Transferase 27 U/L (14-36); Blood Urea Nitrogen 41 mg/dL (7-17); Calcium 10.0 mg/dL (8.4-10.2); Carbon Dioxide 27 mmol/L (22-30); Chloride 103 mmol/L (98-107); Estimated Glomerular Filt Rate 35; Glucose 116 mg/dL (65-110); Osmolality Calculated 303 mOsm/kg (285-295); Potassium 4.3 mmol/L (3.4-5.0); Sodium 141 mmol/L (137-145); Total Protein 7.7 g/dL (6.3-8.2)
[2025-03-17 17:25] LABS: Bilirubin,Total 0.9 mg/dL (0.2-1.3)
== END 2025-03-17 09:10 | disposition home or self-care (01) ==
LOC: CHSLAB 09:10
PROVIDERS: PCP Nurse Practitioner Family; Visit Provider Nurse Practitioner Family
DX: N18.9 Chronic kidney disease, unspecified (principal)
CPT/HCPCS: 36415; 80053

== ENCOUNTER 2025-04-16 09:35 | Outpatient (CLI) | payer MEDICARE, SELFPAY ==
[2025-04-16 10:03] LABS: MALB Creatinine Ratio 21.9 mg/g (0-30)
[2025-04-16 10:04] LABS: Hemoglobin A1C 5.2 % (<5.7)
[2025-04-16 10:39] LABS: Alanine Aminotransferase 21 U/L (6-35); Albumin Level 4.9 g/dL (3.5-5.1); Alkaline Phosphatase 97 U/L (38-126); Anion Gap 13 mmol/L (4-12); Aspartate Amino Transferase 28 U/L (14-36); Bilirubin,Total 1.3 mg/dL (0.2-1.3); Blood Urea Nitrogen 45 mg/dL (7-17); Calcium 10.0 mg/dL (8.4-10.2); Carbon Dioxide 22 mmol/L (22-30); Chloride 104 mmol/L (98-107); Estimated Glomerular Filt Rate 34; Glucose 112 mg/dL (65-110); Osmolality Calculated 300 mOsm/kg (285-295); Potassium 4.3 mmol/L (3.4-5.0); Sodium 139 mmol/L (137-145); Total Protein 8.0 g/dL (6.3-8.2)
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
== END 2025-04-16 09:36 | disposition home or self-care (01) ==
PROVIDERS: PCP Nurse Practitioner Family; Visit Provider Nurse Practitioner Family
DX: E11.69 Type 2 diabetes mellitus with other specified complication (principal); N18.9 Chronic kidney disease, unspecified; R17 Unspecified jaundice
CPT/HCPCS: 36415; 80053; 82043; 83036